=== PATIENT | female | born 1945 | race Caucasian/White ===

== ENCOUNTER 2018-03-31 16:44 | Inpatient (IN) ==
[2018-03-31] MEDS ORDERED: Morphine Sulfate Inj 8 MG/ML Vial IV.PUSH ONE (17:44)
[2018-03-31] MEDS ORDERED: WATER IV.SIG ONE ×2 (17:50)
[2018-03-31] MEDS ORDERED: DEXTROSE 5% IV.SIG ONE ×2 (17:50)
[2018-03-31] MEDS ORDERED: METHYLPREDNISOLONE SOD SUC IV.SIG ONE ×2 (17:50)
--- NOTE | 2018-03-31 18:26 | ED ---
HPI General Chief complaint: Headache Stated complaint: Loss of vision Time Seen by Provider: 03/31/18 17:32 Source: patient Mode of arrival: ambulatory Limitations: no limitations History of Present Illness HPI narrative: Patient is a 72-year-old female presenting to the emergency department for r evaluation of visual changes, headache. Patient states that approximately 10 or 11:00 this morning she experienced complete vision loss in her right eye. This lasted for approximately 15-20 minutes and resolved. She reports a left-sided headache and left facial pain. She reports her pain is a 6 -7 out of 10. She states is consistent with the pain she has had with giant cell arteritis in the past. 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 Patient was initially seen and evaluated [facility], she had labs and imaging performed there. They do not have an cfo on staff and patient states that they wanted to transfer her here via EMS but she declined and came in her private vehicle. Patient has been evaluated at the [facility] by Dr. Medina and she has an cfo , Dr. Rosen at [facility] in [place]. Onset (ago): hour(s) (7.5) Related Data Allergies Allergy/AdvReac Type Severity Reaction Status Date / Time No Known Allergies Allergy Unverified 03/31/18 17:21 Review of Systems Except as stated in HPI: all other systems reviewed are negative Constitutional Reports headache(s) Eyes Reports loss of vision (Resolved) and Reports photophobia ENT Reports facial pain Cardiovascular Reports system reviewed and no additional complaints, except as docu Respiratory Reports system reviewed and no additional complaints, except as docu Gastrointestinal Reports system reviewed and no additional complaints, except as docu Integumentary/Breasts Reports system reviewed and no additional complaints, except as docu Neurologic Denies abnormal speech, Denies abnormal gait, Reports headache(s), Reports loss of vision, Denies paresthesias and Denies weakness [facility] Medical History Medical History Central retinal artery occlusion (Acute) Diabetes (Acute) Giant cell arteritis (Acute) Hyperlipidemia (Acute) Hypertension (Acute) Surgical History Surgical History H/O total hysterectomy (Acute) History of partial hysterectomy (Acute) History of temporal artery biopsy (Acute) Hx of appendectomy (Acute) Hx of tonsillectomy (Acute) Social History Social History Substance History: No History of Abuse Second Hand Smoke Exposure: No Smoking Status: Never smoker How Often Do You Have a Drink Containing Alcohol: Monthly or less Recent Travel in [facility] within the Last 8 Weeks: No Recent Out of Country Travel within the Last 8 Weeks: No Immunization History Tetanus Immunization: <5 Years Hx Influenza Vaccine This Season: Yes Exam Narrative Exam Narrative: GENERAL: Well-developed, well-nourished, alert elderly female. Presenting in no acute distress. SKIN: Focused skin assessment warm/dry. HEAD: Atraumatic. Normocephalic. EYES: Pupils equal and round. No scleral icterus. No injection or drainage. Extraocular movements are intact. ENT: No nasal bleeding or discharge. Mucous membranes pink and moist. NECK: Trachea midline. No JVD. CARDIOVASCULAR: Regular rate and rhythm. No murmur appreciated. RESPIRATORY: No accessory muscle use. Clear to auscultation. Breath sounds equal bilaterally. GASTROINTESTINAL: Abdomen soft, non-tender, nondistended. Hepatic and splenic margins not palpable. MUSCULOSKELETAL: No obvious deformities. No clubbing. No cyanosis. No edema. NEUROLOGICAL: Awake and alert. No obvious cranial nerve deficits. Motor grossly within normal limits. Normal speech. PSYCHIATRIC: Appropriate mood and affect; insight and judgment normal. Neuro General: alert, awake, oriented x3 and CN's II-XI intact bilaterally Cranial Nerves: PERRL, facial strength normal, tongue midline and hearing normal Cognition: normal cognition Speech: speech normal Gait: normal gait Sensory Exam: no sensory deficits noted Course Initial Documented Vital Signs Temperature 97.8 F 03/31/18 17:17 Pulse Rate 86 03/31/18 17:17 Respiratory Rate 20 03/31/18 17:17 Blood Pressure 129/59 L 03/31/18 17:17 Pulse Oximetry 99 03/31/18 17:17 Last Documented Vital Signs Temperature 97.8 F 03/31/18 17:17 Pulse Rate 102 H 03/31/18 17:21 Respiratory Rate 18 03/31/18 17:21 Blood Pressure 191/77 H 03/31/18 17:21 Pulse Oximetry 99 03/31/18 17:21 Medical Decision Making MDM Narrative Medical decision making narrative: Patient is a 72-year-old female that presented to emerge from for evaluation of vision loss, headaches. Patient has a history of giant cell arteritis and has been weaning off of prednisone. She developed headache and had transient vision loss in the right eye this morning. She was seen and evaluated at [facility], initial workup which included a CT scan, CBC, metabolic panel, sed rate, troponin were unremarkable. Patient had these records brought with her. Discussed with Dr. Elver Perry who recommended patient be admitted to medicine, general surgery consult placed, carotid artery ultrasound. Additionally a CRP will be obtained. IV access is established, patient was given morphine for pain. Discussed plan of care with patient who initially just wanted to go home and follow-up with her doctor tomorrow however she was advised that she could suffer permanent vision loss and agreed to stay. Discussed with residents and Dr. Fam who accepted admission, admit orders placed. Differential Diagnosis Differential Diagnosis: Retinal artery occlusion versus giant cell arteritis versus migraine versus other Medical Records Medical records reviewed: Yes I reviewed the patient's medical records. Lab Data Lab results reviewed: Yes I reviewed the patient's lab results. Discharge Plan Discharge Disposition Patient Disposition: 30 Still Patient Discharge Condition Condition: Stable Discharge Details Discharge Problem: Giant cell arteritis, Transient visual loss of right eye, Headache Physicians Team ED Provider: Dominick Hassan ED Midlevel Provider: Radha Duarte Status ED Status: Admitted Patient
--- NOTE | 2018-03-31 19:05 | US ---
EXAM DATE: 03/31/2018 6:59 PM EDT AGE/SEX: 72 years / Female INDICATIONS: Stenosis. CLINICAL DATA: This is the patient's initial encounter. Patient reports that signs and symptoms have been present for 1 day and indicates a pain score of 0/10. MEDICAL/SURGICAL HISTORY: Diabetes. Hypercholesterolemia. Hypertension. Appendectomy. Tonsil lectomy. Hysterectomy. Temporal artery biopsy. COMPARISON: No prior exams available for comparison. VELOCITY PARAMETERS: ICA/CCA Ratio: Right 0.7 , Left 0.7 ICA: Right 79.9 cm/sec, Left 79.4 cm/sec CCA: Right 111.5 cm/sec, Left 118.8 cm/sec ECA: Right 103.7 cm/sec, Left 114.9 cm/sec Vertebral: Right 40.8 cm/sec antegrade, Left 49.1 cm/sec antegrade FINDINGS: Right Carotid: No significant plaque is visualized.The waveforms are within normal limits. Left Carotid: No significant plaque is visualized. The waveforms are within normal limits. Other: None. CONCLUSION: 1. Right Internal Carotid Artery: No significant stenosis or atherosclerotic plaque is visualized. 2. Left Internal Carotid Artery: No significant stenosis or atherosclerotic plaque is visualized. Electronically signed by: Galileo Barney MD 03/31/2018 7:03 PM EDT
--- NOTE | 2018-03-31 19:38 | P.HPFP ---
History of Present Illness Primary Care Physician: UNKNOWN <SarwatTorresLiz M - 04/01/18 15:39> Chief Complaint: transient Right eye vision loss <Tressa Goldsmith D - 04/01/18 00:20> History of Present Illness: Patient is a 72-year-old female with past medical history of diabetes, high cholesterol and left giant cell arteritis (resulting in Left eye vision loss) presenting to the ED with complaints of transient right eye vision loss. Patient reports that she woke up around 4 AM with a bad headache, pain was of throbbing sensation on left rastafari. She took Fioricet and Tylenol for her headache. Later on in the morning that she noticed she could not see from the right eye. Right vision returned within 15 minutes but it was still blurry. Her headache was accompanied by left-sided facial and jaw pain. Patient also reports she felt nauseous and had an upset stomach. Endorses diarrhea. 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 At that time bilateral biopsies of temporal arteries were done and results were negative. However, MRA results were consistent with giant cell arteritis. Patient reports that current episode of right eye vision loss and symptoms of headache, temporal pain are similar to her prior episode of left-sided giant cell arteritis. Denies any numbness or tingling of extremities, weakness, chest pain, shortness of breath, gait issues, fever or chills. Patient went to [facility] where she received lab work and was given 60 [address] of p[address]o. prednisone. CT head and brain without contrast was done with showed mild atrophic changes, no masses or hemorrhages or evidence of acute infarction. Chest x-ray was normal. CBC, ESR and CMP were within normal limits, except slight decrease in na to 127. Of note patient follows with Dr. Rosen from [facility] and Dr. Boo, ophthalmology and rheumatology respectively. She has been tapering down her prednisone medication. Initial dose started at 80 mg and she is currently at 4 mg (for the past 3 wks). She states that she has exacerbation of her headaches whenever she tries to exercise. She has tried to wean down to 3 mg of prednisone but experiences flares every time she has tried to do so. She reports that the tapering of the prednisone has been done based on recommendations from her chip drier and melter assistant. <Tressa Goldsmith 04/01/18 00:20> - Diagnosis (1) Giant cell arteritis (2) Transient visual loss of right eye (3) Headache (4) Diabetes (5) High cholesterol (6) Nutrition, metabolism, and development symptoms <Liz Fam 04/01/18 15:39> (1) Giant cell arteritis (2) Transient visual loss of right eye (3) Headache (4) Diabetes (5) High cholesterol (6) Nutrition, metabolism, and development symptoms <Tressa Goldsmith 03/31/18 23:38> Inpatient Certification: I certify that the inpatient services were ordered in accordance with Medicare regulations governing the order. This includes certification that hospital inpatient services are reasonable and necessary and in the case of services not specified as inpatient-only under 42 CFR 419.22(n), that they are appropriately provided as inpatient services in accordance to with the 2-midnight benchmark under 43 CFR 412.3(e) <Liz Fam 04/01/18 15:39> I certify that the inpatient services were ordered in accordance with Medicare regulations governing the order. This includes certification that hospital inpatient services are reasonable and necessary and in the case of services not specified as inpatient-only under 42 CFR 419.22(n), that they are appropriately provided as inpatient services in accordance to with the 2-midnight benchmark under 43 CFR 412.3(e) <Tressa Goldsmith 03/31/18 19:38> Review of Systems All other systems reviewed negative except as stated in HPI <Tressa Goldsmith 04/01/18 00:20> PMFSH - History History Provided By: Patient <Tressa Goldsmith 03/31/18 19:38> - Medical History Medical History: Medical History (Last Reviewed 03/31/18 @ 18:33 by NANCY Jarquin) Central retinal artery occlusion Diabetes Giant cell arteritis Hyperlipidemia Hypertension <Liz Fam 04/01/18 15:39> Medical History (Last Reviewed 03/31/18 @ 18:33 by NANCY Jarquin) Central retinal artery occlusion Diabetes Giant cell arteritis Hyperlipidemia Hypertension <Tressa Goldsmith 03/31/18 19:38> - Surgical History Surgical History: Surgical History (Last Reviewed 03/31/18 @ 18:33 by NANCY Jarquin) H/O total hysterectomy History of partial hysterectomy History of temporal artery biopsy Hx of appendectomy Hx of tonsillectomy <Liz Fam - 04/01/18 15:39> Surgical History (Last Reviewed 03/31/18 @ 18:33 by NANCY Jarquin) H/O total hysterectomy History of partial hysterectomy History of temporal artery biopsy Hx of appendectomy Hx of tonsillectomy <Tressa Goldsmith - 03/31/18 19:38> - Family History Family History: Family History (Last Updated 04/01/18 @ 00:02 by Tressa Goldsmith MD, R1) Sister Retinal vein occlusion Daughter Brain aneurysm <Liz Fam - 04/01/18 15:39> Family History (Last Updated 04/01/18 @ 00:02 by Tressa Goldsmith MD, R1) Sister Retinal vein occlusion Daughter Brain aneurysm <Tressa Goldsmith - 04/01/18 00:20> - Tobacco History Second Hand Smoke Exposure: No <Tressa Goldsmith - 03/31/18 19:38> Tobacco Use In Past 30 Days: No <Tressa Goldsmith - 03/31/18 19:38> Smoking Status: Never smoker <Tressa Goldsmith - 03/31/18 19:38> - Alcohol History How Often Do You Have a Drink Containing Alcohol: Monthly or less <Tressa Goldsmith - 03/31/18 19:38> - Substance Use History Substance History: No History of Abuse <Tressa Goldsmith - 03/31/18 19:38> - Travel History Recent Travel in the [facility] Within the Last 8 Weeks: No <Tressa Goldsmith - 19:38> Recent Travel Out of the Country Within the Last 8 Weeks: No <Tressa Goldsmith 03/31/18 19:38> - Immunization History Tetanus Immunization: <5 Years <Tresas Goldsmith - 03/31/18 19:38> Hx Influenza Vaccine This Season: Yes <Tressa Goldsmith - 03/31/18 19:38> Medications and Allergies Allergies Allergy/AdvReac Type Severity Reaction Status Date / Time No Known Allergies Allergy Unverified 03/31/18 17:21 <Liz Fam M - 04/01/18 15:39> Home Medications Medication Instructions Recorded Confirmed Type Citracal Regular 50 mg PO DAILY 03/31/18 03/31/18 History ascorbic acid (vitamin C) [C-500] 500 mg PO DAILY 03/31/18 03/31/18 History [id number] 1 cap PO Q4H PRN 03/31/18 03/31/18 History [Fioricet] conjugated estrogens [Premarin] 0.3 mg PO DAILY 03/31/18 03/31/18 History magnesium 250 mg PO DAILY 03/31/18 03/31/18 History simvastatin [Zocor] 10 mg PO QPM 03/31/18 03/31/18 History <Liz Fam M - 04/01/18 15:39> Active Medications: Active Medications Al Hydroxide/Mg Hydroxide (Milk Of Anabelle Gomez) 30 ml PO Q12H PRN PRN Reason: Mild Constipation Ascorbic Acid (Vitamin C) 500 mg PO DAILY [facility] Last Admin: 04/01/18 10:18 Dose: 500 mg Bisacodyl (Dulcolax Supp) 10 mg RECTAL DAILY PRN PRN Reason: SEVERE CONSITIPATION Dextrose (D50w Vial) 50 ml IV.PUSH UNSCH PRN PRN Reason: PER HYPOGLYCEMIA PROTOCOL Enoxaparin Sodium (Lovenox Inj) 30 mg SQ Q24H [facility] Last Admin: 03/31/18 21:50 Dose: 30 mg Glucagon (Glucagon Inj) 1 mg OTHER PRN PRN PRN Reason: for Hypoglycemia Protocol Sodium Chloride (Ns Inj) 1,000 mls @ 100 mls/hr IV.CONT .Q10H [facility] Last Admin: 04/01/18 06:27 Dose: 100 mls/hr Methylprednisolone Sodium (Succinate 500 mg/ Dextrose) 108 mls @ 216 mls/hr IV.SIG ONCE ONE Stop: 04/01/18 17:29 Methylprednisolone Sodium (Succinate 500 mg/ Dextrose) 108 mls @ 216 mls/hr IV.SIG ONCE ONE Stop: 04/02/18 06:29 Insulin Aspart (Novolog Insulin Suppl Scale Inj) 0 unit SQ 07,13, [facility]; Protocol Last Admin: 04/01/18 13:19 Dose: 1 unit Lactulose (Lactulose Liq) 30 ml PO DAILY PRN PRN Reason: SEVERE CONSITIPATION Magnesium Oxide (Mag-Ox) 400 mg PO DAILY [facility] Last Admin: 04/01/18 10:18 Dose: 400 mg Morphine Sulfate (Morphine Inj) 3 mg IV.PUSH Q3H PRN PRN Reason: BREAKTHROUGH PAIN Last Admin: 04/01/18 10:34 Dose: 3 mg Morphine Sulfate (Morphine Inj) 2 mg IV.PUSH Q3H PRN PRN Reason: PAIN 6-10;IF UNABLE TO TAKE PO Last Admin: 04/01/18 04:52 Dose: 2 mg Morphine Sulfate (Morphine Inj) 1 mg IV.PUSH Q3H PRN PRN Reason: PAIN 3-5; IF UABLE TO TAKE PO Naloxone HCl (Narcan Inj) 0.4 mg IV.PUSH UNSCH PRN PRN Reason: SEE LABEL COMMENTS Ondansetron HCl (Zofran Inj) 4 mg IV.PUSH Q6H PRN PRN Reason: NAUSEA OR VOMITING Oxycodone HCl (Roxicodone) 5 mg PO Q4H PRN PRN Reason: PAIN SCALE 3 TO 5 Last Admin: 03/31/18 21:12 Dose: 5 mg Pravastatin Sodium (Pravachol) 20 mg PO HS [facility] Senna/Docusate Sodium (Mayra-Colace) 1 tab PO BID [facility] Last Admin: 04/01/18 10:18 Dose: 1 tab Sennosides (Senokot) 17.2 mg PO Q12H PRN PRN Reason: Moderate Constipation Sodium Chloride (Ns Flush) 2 ml IV.FLUSH PRN PRN PRN Reason: FLUSH AFTER USING IV ACCESS Temazepam (Restoril) 15 mg PO HS PRN PRN Reason: INSOMNIA <Liz Fam - 04/01/18 15:39> Active Medications Sodium Chloride (Ns Flush) 2 ml IV.FLUSH PRN PRN PRN Reason: FLUSH AFTER USING IV ACCESS <Tressa Goldsmith - 03/31/18 19:38> Exam Vital signs: Vital Signs 03/31/18 17:17 03/31/18 17:21 03/31/18 19:06 Temperature 97.8 F Pulse Rate 86 102 H 95 H Respiratory Rate 20 18 Blood Pressure 129/59 L 191/77 H Pulse Oximetry 99 99 03/31/18 20:23 03/31/18 20:28 03/31/18 23:00 Temperature 97.7 F Pulse Rate 95 H 92 H 92 H Respiratory Rate 18 18 Blood Pressure 131/60 147/67 H Pulse Oximetry 95 04/01/18 00:00 04/01/18 00:15 04/01/18 04:00 Temperature 97.4 F L 97.7 F 97.3 F L Pulse Rate 91 H 91 H 87 Respiratory Rate 18 20 18 Blood Pressure 144/63 H 132/60 114/54 L Pulse Oximetry 98 95 96 04/01/18 04:09 04/01/18 08:00 Temperature 97.5 F L Pulse Rate 96 H 83 Respiratory Rate 20 Blood Pressure 119/57 L Pulse Oximetry 99 Intake & Output 03/31/18 04/01/18 04/01/18 18:59 06:59 18:59 Intake Total 1301 / 1301 108 / 108 Balance 1301 / 1301 108 / 108 Weight 59.421 kg 59.42 kg Intake: IV 961 / 961 108 / 108 NS Inj 1,000 ML @ 100 mls/hr IV 961 / 961 .CONT .Q10H [facility] Rx#:[id number] SoluMEDROL Inj 500 MG In D5W 108 / 108 Inj 100 ML @ 216 mls/hr IV.SIG BID ONE Rx#:[id number] Oral 340 / 340 Other: # Voids 3 Date of Last Bowel Movement 03/31/18 Weight On Admission 59.421 kg <Liz Fam M - 04/01/18 15:39> Vital Signs 03/31/18 17:17 03/31/18 17:21 03/31/18 19:06 Temperature 97.8 F Pulse Rate 86 102 H 95 H Respiratory Rate 20 18 Blood Pressure 129/59 L 191/77 H Pulse Oximetry 99 99 Intake & Output 03/31/18 03/31/18 04/01/18 06:59 18:59 06:59 Weight 59.421 kg <Tressa Goldsmith - 03/31/18 19:38> - Constitutional no acute distress, average body habitus <Tressa Goldsmith - 04/01/18 00:20> - Routine HEENT Exam Head: Present: normocephalic, atraumatic, tenderness of temporal artery (on left rastafari, no sinusor jaw tenderness ). Absent: facial swelling <DaleTressa lynne 04/01/18 00:20> Eye: Present: EOMI, PERRL (Left eye vision loss, chronic. Patient able to read vision chart with Right eye. ). Absent: periorbital swelling <Tressa Goldsmith 04/01/18 00:20> ENT: Present: mucous membranes moist <DalemagedTressa 04/01/18 00:20> - Routine Neck Exam Present: supple, full ROM. Absent: JVD <DalemagedTressa 04/01/18 00:20> - Routine Chest/Breast/Axilla Exam Chest wall: Absent: tenderness <Tressa Goldsmith 04/01/18 00:20> - Routine Respiratory Exam Present: CTA bilaterally. Absent: accessory muscle use <Tressa Goldsmith 06/11 00:20> - Routine Cardiovascular Exam Present: RRR, S1, S2. Absent: murmur, gallop, rubs <DalemagedTressa 00:20> - Routine Abdominal Exam Present: soft, normoactive bowel sounds. Absent: tenderness, distended, rebound , guarding <Tressa Goldsmith 04/01/18 00:20> - Routine Extremities Exam Present: full ROM, pulses intact, normal capillary refill. Absent: cyanosis, clubbing, edema, calf tenderness <Tressa Goldsmith 04/01/18 00:20> - Routine Skin Exam Present: intact <DalemagedTressa 04/01/18 00:20> - Routine Neurological Exam Present: alert, oriented X3, CN II-XII intact <DalemagedMarandaTressa Hung 04/01/18 00: 20> Results - Labs Result diagrams: 04/01/18 06:06 04/01/18 06:06 <Liz Fam - 04/01/18 15:39> Abnormal lab results 03/31/18 04/01/18 04/01/18 Range/Units 18:10 00:13 06:06 RBC 3.83 L (4.00-5.30) mil/mm3 Neut % (Auto) 86.8 H (16.0-70.0) % Lymph # (Auto) 0.7 L (1.0-4.8) th/mm3 Estimated GFR (>89) mL/min POC Glucose 224 H (68-110) mg/dl Random Glucose 148 H (74-106) mg/dL AST (15-37) U/L Albumin (3.4-5.0) g/dL 04/01/18 04/01/18 04/01/18 Range/Units 06:06 06:32 12:44 RBC (4.00-5.30) mil/mm3 Neut % (Auto) (16.0-70.0) % Lymph # (Auto) (1.0-4.8) th/mm3 Estimated GFR 70 L (>89) mL/min POC Glucose 166 H 165 H (68-110) mg/dl Random Glucose 132 H (74-106) mg/dL AST 12 L (15-37) U/L Albumin 3.1 L (3.4-5.0) g/dL Short CBC 04/01/18 Range/Units 06:06 WBC 6.4 (4.0-11.0) th/mm3 Hgb 11.7 (11.6-15.3) gm/dL Hct 35.0 (35.0-46.0) % Plt Count 255 (150-450) th/mm3 BMP 04/01/18 06:06 Sodium 136 Potassium 4.6 Chloride 103 Carbon Dioxide 22.0 BUN 8 Creatinine 0.80 Calcium 8.6 Liver Function 04/01/18 Range/Units 06:06 Total Bilirubin 0.2 (0.2-1.0) mg/dL AST 12 L (15-37) U/L ALT 18 (10-53) U/L Alkaline Phosphatase 46 (45-117) U/L Albumin 3.1 L (3.4-5.0) g/dL <Liz Fam - 04/01/18 15:39> - Imaging Impressions Carotid Doppler Study 03/31/18 17:55 CONCLUSION: 1. Right Internal Carotid Artery: No significant stenosis or atherosclerotic plaque is visualized. 2. Left Internal Carotid Artery: No significant stenosis or atherosclerotic plaque is visualized. <Liz Fam - 04/01/18 15:39> Impressions Carotid Doppler Study 03/31/18 17:55 CONCLUSION: 1. Right Internal Carotid Artery: No significant stenosis or atherosclerotic plaque is visualized. 2. Left Internal Carotid Artery: No significant stenosis or atherosclerotic plaque is visualized. <Tressa Goldsmith - 03/31/18 19:38> Caprini VTE Risk Assessment Caprini VTE Risk Assessment: Moderate/High Risk (score >= 2) <Tressa Goldsmith - 04/01/18 00:20> Caprini Risk Assessment Model: Point Value = 1 Point Value = 2 Point Value = 3 Point Value = 5 Age 41-60 Minor surgery BMI > 25 kg/m2 Swollen legs Varicose veins or History of unexplained or recurrent spontaneous Oral contraceptives or hormone replacement Sepsis (< 1 month) Serious lung disease, including pneumonia (< 1 month) Abnormal pulmonary function Acute myocardial infarction Congestive heart failure (< 1 month) History of inflammatory bowel disease Medical patient at bed rest Age 61-74 Arthroscopic surgery Major open surgery (> 45 min) Laparoscopic surgery (> 45 min) Malignancy Confined to bed (> 72 hours) Immobilizing plaster cast Central venous access Age >= 75 History of VTE Family history of VTE Factor V Leiden Prothrombin [id number] Lupus anticoagulant Anticardiolipin antibodies Elevated serum homocysteine Heparin-induced thrombocytopenia Other congenital or acquired thrombophilia Stroke (< 1 month) Elective arthroplasty Hip, pelvis, or leg fracture Acute spinal cord injury (< 1 month) <Liz Fam - 04/01/18 15:39> Point Value = 1 Point Value = 2 Point Value = 3 Point Value = 5 Age 41-60 Minor surgery BMI > 25 kg/m2 Swollen legs Varicose veins or History of unexplained or recurrent spontaneous Oral contraceptives or hormone replacement Sepsis (< 1 month) Serious lung disease, including pneumonia (< 1 month) Abnormal pulmonary function Acute myocardial infarction Congestive heart failure (< 1 month) History of inflammatory bowel disease Medical patient at bed rest Age 61-74 Arthroscopic surgery Major open surgery (> 45 min) Laparoscopic surgery (> 45 min) Malignancy Confined to bed (> 72 hours) Immobilizing plaster cast Central venous access Age >= 75 History of VTE Family history of VTE Factor V Leiden Prothrombin [id number] Lupus anticoagulant Anticardiolipin antibodies Elevated serum homocysteine Heparin-induced thrombocytopenia Other congenital or acquired thrombophilia Stroke (< 1 month) Elective arthroplasty Hip, pelvis, or leg fracture Acute spinal cord injury (< 1 month) <Tressa Goldsmith - 03/31/18 19:38> Prophylaxis Regimen: Total Risk Factor Score Risk Level Prophylaxis Regimen 0-1 Low Early ambulation 2 Moderate Order ONE of the following: *Sequential Compression Device (SCD) *Heparin 5000 units SQ BID 3-4 Higher Order ONE of the following medications: *Heparin 5000 units SQ TID *Enoxaparin/Lovenox 40 mg SQ daily (WT < 150 kg, CrCl > 30 mL/min) *Enoxaparin/Lovenox 30 mg SQ daily (WT < 150 kg, CrCl > 10-29 mL/min) *Enoxaparin/Lovenox 30 mg SQ BID (WT < 150 kg, CrCl > 30 mL/min) AND/OR *Sequential Compression Device (SCD) 5 or more Highest Order ONE of the following medications: *Heparin 5000 units SQ TID (Preferred with Epidurals) *Enoxaparin/Lovenox 40 mg SQ daily (WT < 150 kg, CrCl > 30 mL/min) *Enoxaparin/Lovenox 30 mg SQ daily (WT < 150 kg, CrCl > 10-29 mL/min) *Enoxaparin/Lovenox 30 mg SQ BID (WT < 150 kg, CrCl > 30 mL/min) AND *Sequential Compression Device (SCD) <Liz Fam - 04/01/18 15:39> Total Risk Factor Score Risk Level Prophylaxis Regimen 0-1 Low Early ambulation 2 Moderate Order ONE of the following: *Sequential Compression Device (SCD) *Heparin 5000 units SQ BID 3-4 Higher Order ONE of the following medications: *Heparin 5000 units SQ TID *Enoxaparin/Lovenox 40 mg SQ daily (WT < 150 kg, CrCl > 30 mL/min) *Enoxaparin/Lovenox 30 mg SQ daily (WT < 150 kg, CrCl > 10-29 mL/min) *Enoxaparin/Lovenox 30 mg SQ BID (WT < 150 kg, CrCl > 30 mL/min) AND/OR *Sequential Compression Device (SCD) 5 or more Highest Order ONE of the following medications: *Heparin 5000 units SQ TID (Preferred with Epidurals) *Enoxaparin/Lovenox 40 mg SQ daily (WT < 150 kg, CrCl > 30 mL/min) *Enoxaparin/Lovenox 30 mg SQ daily (WT < 150 kg, CrCl > 10-29 mL/min) *Enoxaparin/Lovenox 30 mg SQ BID (WT < 150 kg, CrCl > 30 mL/min) AND *Sequential Compression Device (SCD) <Tressa Goldsmith D - 03/31/18 19:38> Assessment and Plan - Assessment (1) Giant cell arteritis Code(s): M31.6 - Other giant cell arteritis Status: Acute (2) Transient visual loss of right eye Code(s): H53.121 - Transient visual loss, right eye Status: Acute (3) Headache Code(s): R51 - Headache Status: Acute (4) Diabetes Code(s): E11.9 - Type 2 diabetes mellitus without complications Status: Chronic (5) High cholesterol Code(s): E78.00 - Pure hypercholesterolemia, unspecified Status: Acute (6) Nutrition, metabolism, and development symptoms Code(s): R63.8 - Other symptoms and signs concerning food and fluid intake Status: Acute <Liz Fam - 04/01/18 15:39> (1) Giant cell arteritis Code(s): M31.6 - Other giant cell arteritis Status: Acute Plan: Patient with 1 day history of transient right eye vision loss accompanied by left temporal tenderness and jaw pain. 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 Suspicion for giant cell arteritis affecting right eye vision. Patient currently with return of right eye vision, able to read eye chart. Continue with methylprednisone 500 mg IV twice daily Vital signs within normal limits, continue to monitor Pain management: Morphine per pain scale Ophthalmology consulted, appreciate recommendations. Follow-up: A.m. labs (2) Transient visual loss of right eye Code(s): H53.121 - Transient visual loss, right eye Status: Acute Plan: Continue to monitor See plan above (3) Headache Code(s): R51 - Headache Status: Acute Plan: See plan for giant cell arteritis (4) Diabetes Code(s): E11.9 - Type 2 diabetes mellitus without complications Status: Chronic Plan: Patient with history of diabetes. Patient with random glucose of 148 on admission. Accu-Cheks Sliding scale insulin per protocol Hypoglycemia protocol (5) High cholesterol Code(s): E78.00 - Pure hypercholesterolemia, unspecified Status: Acute Plan: Continue with home medication (6) Nutrition, metabolism, and development symptoms Code(s): R63.8 - Other symptoms and signs concerning food and fluid intake Status: Acute Plan: Fluids: 100mls/hr Electrolytes: Replete as needed Nutrition: Diabetic diet DVT prophylaxis Lovenox 40mg SQ daily <Tressa Goldsmith - 03/31/18 23:38> - Attending Attestation The exam, history, and the medical decision-making described in the above note were completed with the assistance of the resident physician. I reviewed and agree with the findings presented. I attest that I had a [id number] encounter with the patient on the same day, and personally performed and documented my assessment and findings in the medical record. she was seen during the admission process with the residents. agree with steroids and Ophthalmology. can call her [facility] prior to discharge <Liz Fam - 04/01/18 15:39> <Tressa Goldsmith D - Last Filed: 03/31/18 23:38> (3) Headache Qualifiers: Headache type: other vascular headache Qualified Code(s): G44.1 - Vascular headache, not elsewhere classified <Liz Fam - Last Filed: 04/01/18 15:39> (3) Headache Qualifiers: Headache type: other vascular headache Qualified Code(s): G44.1 - Vascular headache, not elsewhere classified <Tressa Goldsmith - Last Filed: 03/31/18 23:38> (3) Headache Qualifiers: Headache type: other vascular headache Qualified Code(s): G44.1 - Vascular headache, not elsewhere classified <Liz Fam M - Last Filed: 04/01/18 15:39> (3) Headache Qualifiers: Headache type: other vascular headache Qualified Code(s): G44.1 - Vascular headache, not elsewhere classified
[2018-03-31] MEDS ORDERED: Bisacodyl 10 MG Supp RECTAL PRN (19:39)
[2018-03-31] MEDS ORDERED: Temazepam 15 MG Capsule PO PRN (19:39)
[2018-03-31] MEDS ORDERED: Ibuprofen 400 MG Tablet PO PRN (19:50)
[2018-03-31] MEDS ORDERED: Morphine Sulfate Inj 2 MG/ML Vial IV.PUSH PRN (19:50)
[2018-03-31] MEDS ORDERED: Naloxone Inj 0.4 MG/ML Vial IV.PUSH PRN (19:50)
[2018-03-31] MEDS ORDERED: Dextrose 50% in Water 50 ML Vial IV.PUSH PRN (20:22)
[2018-03-31] MEDS: Enoxaparin Inj 30 MG/0.3 ML Syringe SQ SCH (21:50)
[2018-03-31] MEDS: Senna/Docusate Sodium 8.6/50 MG Tablet PO SCH (21:51)
[2018-03-31] MEDS: Sod Chloride 0.9% Inj 1,000 ML IV.CONT SCH (21:53)
[2018-04-01] MEDS: Morphine Inj 4 MG/ML Vial IV.PUSH PRN ×4 (00:25→19:30)
[2018-04-01] MEDS: Insulin NovoLOG Aspart Correctional Sugar Inj SQ SCH ×4 (00:43→22:00)
[2018-04-01] MEDS ORDERED: WATER IV.SIG ONE ×4 (06:00→17:00)
[2018-04-01] MEDS ORDERED: DEXTROSE 5% IV.SIG ONE ×4 (06:00→17:00)
[2018-04-01] MEDS ORDERED: METHYLPREDNISOLONE SOD SUC IV.SIG ONE ×4 (06:00→17:00)
[2018-04-01] MEDS: Sod Chloride 0.9% Inj 1,000 ML IV.CONT SCH ×2 (06:27→18:00)
[2018-04-01 08:41] LABS: Baso % (Auto) 0.1 % (0.0-2.0); Hemoglobin 11.7 gm/dL (11.6-15.3); Lymph # (Auto) 0.7 th/mm3 (1.0-4.8); Lymph % (Auto) 10.6 % (9.0-44.0); Mean Corpuscular HGB Conc 33.5 % (32.0-36.0); Mean Corpuscular Hemoglobin 30.6 pg (27.0-34.0); Mean Corpuscular Volume 91.5 fL (80.0-100.0); Mean Platelet Volume 10.4 fL (7.0-11.0); Mono # (Auto) 0.2 th/mm3 (0.0-0.9); Mono % (Auto) 2.5 % (0.0-8.0); Neut # (Auto) 5.5 th/mm3 (1.8-7.7); Neut % (Auto) 86.8 % (16.0-70.0); Platelet Count 255 th/mm3 (150-450); Red Blood Count 3.83 mil/mm3 (4.00-5.30); Red Cell Distribution Width 12.8 % (11.6-17.2); White Blood Count 6.4 th/mm3 (4.0-11.0)
[2018-04-01 09:06] LABS: Alanine Aminotransferase 18 U/L (10-53); Albumin 3.1 g/dL (3.4-5.0); Anion Gap 11 meq/L (5-15); Aspartate Aminotransferase 12 U/L (15-37); Blood Urea Nitrogen 8 mg/dL (7-18); Calcium 8.6 mg/dL (8.5-10.1); Chloride 103 meq/L (98-107); Glomerular Filtration Rate 70 mL/min (>89); Glucose,Random 132 mg/dL (74-106); Potassium 4.6 meq/L (3.5-5.1); Sodium 136 meq/L (136-145)
[2018-04-01 09:09] LABS: Alkaline Phosphatase 46 U/L (45-117); Total Protein 6.6 g/dL (6.4-8.2)
--- NOTE | 2018-04-01 09:56 | P.HPFP ---
History of Present Illness Primary Care Physician: UNKNOWN Chief Complaint: transient Right eye vision loss History of Present Illness: Ms Miles is a 72-year-old female with past medical history of diabetes, high cholesterol and left giant cell arteritis (resulting in Left eye vision loss) presenting to the ED with complaints of transient right eye vision loss. Patient reports that she woke up around 4 AM with a bad headache, pain was of throbbing sensation on left church. She took Fioricet and Tylenol for her headache. Later on in the morning that she noticed she could not see from the right eye. Right vision returned within 15 minutes but it was still blurry. Her headache was accompanied by left-sided facial and jaw pain. Patient also reports she felt nauseous and had an upset stomach. Endorses diarrhea. 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 At that time bilateral biopsies of temporal arteries were done and results were negative. However, MRA results were consistent with giant cell arteritis. Patient reports that current episode of right eye vision loss and symptoms of headache, temporal pain are similar to her prior episode of left-sided giant cell arteritis. Denies any numbness or tingling of extremities, weakness, chest pain, shortness of breath, gait issues, fever or chills. Patient went to [facility] where she received lab work and was given 60 mg of p[address]o. prednisone. CT head and brain without contrast was done with showed mild atrophic changes, no masses or hemorrhages or evidence of acute infarction. Chest x-ray was normal. CBC, ESR and CMP were within normal limits, except slight decrease in na to 127. Of note patient follows with Dr. Rosen from [facility] and Dr. Gomez, ophthalmology and rheumatology respectively. She has been tapering down her prednisone medication. Initial dose started at 80 mg and she is currently at 4 mg (for the past 3 wks). She states that she has exacerbation of her headaches whenever she tries to exercise. She has tried to wean down to 3 mg of prednisone but experiences flares every time she has tried to do so. 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 Fortunately, her vision has been stable here in the hospital. She is still light sensitive but can see to read an eye chart. She has no complaints today and her headaches are improving with the steroids. - Diagnosis (1) Giant cell arteritis (2) Transient visual loss of right eye (3) Headache (4) Diabetes (5) High cholesterol (6) Nutrition, metabolism, and development symptoms Inpatient Certification: I certify that the inpatient services were ordered in accordance with Medicare regulations governing the order. This includes certification that hospital inpatient services are reasonable and necessary and in the case of services not specified as inpatient-only under 42 CFR 419.22(n), that they are appropriately provided as inpatient services in accordance to with the 2-midnight benchmark under 43 CFR 412.3(e) Estimated Total Length of Stay (Days): 5 Plans for Post Hospital Care: Home Review of Systems other (see ROS from H&P on admission) PMFSH - History History Provided By: Patient - Medical History Medical History: Medical History (Last Reviewed 03/31/18 @ 18:33 by NANCY Jarquin) Central retinal artery occlusion Diabetes Giant cell arteritis Hyperlipidemia Hypertension - Surgical History Surgical History: Surgical History (Last Reviewed 03/31/18 @ 18:33 by NANCY Jarquin) H/O total hysterectomy History of partial hysterectomy History of temporal artery biopsy Hx of appendectomy Hx of tonsillectomy - Family History Family History: Family History (Last Updated 04/01/18 @ 00:02 by Tressa Goldsmith MD, R1) Sister Retinal vein occlusion Daughter Brain aneurysm - Tobacco History Second Hand Smoke Exposure: No Tobacco Use In Past 30 Days: No Smoking Status: Never smoker - Alcohol History How Often Do You Have a Drink Containing Alcohol: Monthly or less - Substance Use History Substance History: No History of Abuse - Travel History Recent Travel in the [place] Within the Last 8 Weeks: No Recent Travel Out of the Country Within the Last 8 Weeks: No - Immunization History Tetanus Immunization: <5 Years Hx Influenza Vaccine This Season: Yes Medications and Allergies Active Medications: Active Medications Al Hydroxide/Mg Hydroxide (Milk Of Magnesia Liq) 30 ml PO Q12H PRN PRN Reason: Mild Constipation Ascorbic Acid (Vitamin C) 500 mg PO DAILY [facility] Bisacodyl (Dulcolax Supp) 10 mg RECTAL DAILY PRN PRN Reason: SEVERE CONSITIPATION Dextrose (D50w Vial) 50 ml IV.PUSH UNSCH PRN PRN Reason: PER HYPOGLYCEMIA PROTOCOL Enoxaparin Sodium (Lovenox Inj) 30 mg SQ Q24H [facility] Last Admin: 03/31/18 21:50 Dose: 30 mg Glucagon (Glucagon Inj) 1 mg OTHER PRN PRN PRN Reason: for Hypoglycemia Protocol Sodium Chloride (Ns Inj) 1,000 mls @ 100 mls/hr IV.CONT .Q10H [facility] Last Admin: 04/01/18 06:27 Dose: 100 mls/hr Insulin Aspart (Novolog Insulin Suppl Scale Inj) 0 unit SQ 07,13,, [facility]; Protocol Last Admin: 04/01/18 06:39 Dose: Not Given Lactulose (Lactulose Liq) 30 ml PO DAILY PRN PRN Reason: SEVERE CONSITIPATION Magnesium Oxide (Mag-Ox) 400 mg PO DAILY [facility] Morphine Sulfate (Morphine Inj) 3 mg IV.PUSH Q3H PRN PRN Reason: BREAKTHROUGH PAIN Morphine Sulfate (Morphine Inj) 2 mg IV.PUSH Q3H PRN PRN Reason: PAIN 6-10;IF UNABLE TO TAKE PO Last Admin: 04/01/18 04:52 Dose: 2 mg Morphine Sulfate (Morphine Inj) 1 mg IV.PUSH Q3H PRN PRN Reason: PAIN 3-5; IF UABLE TO TAKE PO Naloxone HCl (Narcan Inj) 0.4 mg IV.PUSH UNSCH PRN PRN Reason: SEE LABEL COMMENTS Ondansetron HCl (Zofran Inj) 4 mg IV.PUSH Q6H PRN PRN Reason: NAUSEA OR VOMITING Oxycodone HCl (Roxicodone) 5 mg PO Q4H PRN PRN Reason: PAIN SCALE 3 TO 5 Last Admin: 03/31/18 21:12 Dose: 5 mg Pravastatin Sodium (Pravachol) 20 mg PO HS [facility] Senna/Docusate Sodium (Mayra-Colace) 1 tab PO BID [facility] Last Admin: 03/31/18 21:51 Dose: 1 tab Sennosides (Senokot) 17.2 mg PO Q12H PRN PRN Reason: Moderate Constipation Sodium Chloride (Ns Flush) 2 ml IV.FLUSH PRN PRN PRN Reason: FLUSH AFTER USING IV ACCESS Temazepam (Restoril) 15 mg PO HS PRN PRN Reason: INSOMNIA Allergies Allergy/AdvReac Type Severity Reaction Status Date / Time No Known Allergies Allergy Unverified 03/31/18 17:21 Home Medications Medication Instructions Recorded Confirmed Type Citracal Regular 50 mg PO DAILY 03/31/18 03/31/18 History ascorbic acid (vitamin C) [C-500] 500 mg PO DAILY 03/31/18 03/31/18 History seantoqskp-hhlrzsherrmid-keja 1 cap PO Q4H PRN 03/31/18 03/31/18 History [Fioricet] conjugated estrogens [Premarin] 0.3 mg PO DAILY 03/31/18 03/31/18 History magnesium 250 mg PO DAILY 03/31/18 03/31/18 History simvastatin [Zocor] 10 mg PO QPM 03/31/18 03/31/18 History Exam Vital signs: Vital Signs 03/31/18 17:17 03/31/18 17:21 03/31/18 19:06 Temperature 97.8 F Pulse Rate 86 102 H 95 H Respiratory Rate 20 18 Blood Pressure 129/59 L 191/77 H Pulse Oximetry 99 99 03/31/18 20:23 03/31/18 20:28 03/31/18 23:00 Temperature 97.7 F Pulse Rate 95 H 92 H 92 H Respiratory Rate 18 18 Blood Pressure 131/60 147/67 H Pulse Oximetry 95 04/01/18 00:00 04/01/18 04:00 04/01/18 04:09 Temperature 97.4 F L 97.3 F L Pulse Rate 91 H 87 96 H Respiratory Rate 18 18 Blood Pressure 144/63 H 114/54 L Pulse Oximetry 98 96 04/01/18 08:00 Temperature 97.5 F L Pulse Rate 83 Respiratory Rate 20 Blood Pressure 119/57 L Pulse Oximetry 99 Intake & Output 03/31/18 04/01/18 04/01/18 18:59 06:59 18:59 Intake Total 1301 / 1301 108 / 108 Balance 1301 / 1301 108 / 108 Weight 59.421 kg 59.42 kg Intake: IV 961 / 961 108 / 108 NS Inj 1,000 ML @ 100 mls/hr IV 961 / 961 .CONT .Q10H [facility] Rx#:[id number] SoluMEDROL Inj 500 MG In D5W 108 / 108 Inj 100 ML @ 216 mls/hr IV.SIG BID ONE Rx#:[id number] Oral 340 / 340 Other: # Voids 3 Date of Last Bowel Movement 03/31/18 Weight On Admission 59.421 kg - Constitutional no acute distress, average body habitus, cooperative - Routine HEENT Exam Head: Present: normocephalic, atraumatic, scalp tenderness, tenderness of temporal artery. Absent: facial swelling Eye: Present: EOMI, PERRL. Absent: conjunctival icterus, scleral injection, conjunctivae pink, nystagmus, proptosis ENT: Present: mucous membranes moist, oropharynx clear. Absent: septal deviation - Routine Neck Exam Present: supple, full ROM. Absent: carotid bruit - Routine Chest/Breast/Axilla Exam Chest wall: Absent: tenderness, chest tube - Routine Respiratory Exam Absent: accessory muscle use, patient mechanically ventilated, decreased breath sounds, prolonged expiratory phase, rales, respiratory distress, rhonchi, stridor, wheezes, crackles, distant breath sounds, diminished air movement - Routine Cardiovascular Exam Present: RRR. Absent: gallop, rubs, click, bradycardia, tachycardia, irregular rhythm, irregularly irregular, JVD - Routine Abdominal Exam Present: soft, normoactive bowel sounds. Absent: tenderness, distended, rebound , guarding - Routine Extremities Exam Absent: cyanosis, clubbing, edema, calf tenderness, palpable cord, tenderness, extremity cold to touch - Routine Skin Exam Present: intact, dry. Absent: cyanosis, erythema, pallor, mottling, petechiae, jaundice - Routine Neurological Exam Present: alert, oriented X3, moving all extremities, normal tone, vision grossly intact (right eye), normal speech. Absent: sensory deficit, motor deficit, altered mental status, hemineglect, facial asymmetry Results - Labs Result diagrams: 04/01/18 06:06 04/01/18 06:06 Abnormal lab results 03/31/18 04/01/18 04/01/18 Range/Units 18:10 00:13 06:06 RBC 3.83 L (4.00-5.30) mil/mm3 Neut % (Auto) 86.8 H (16.0-70.0) % Lymph # (Auto) 0.7 L (1.0-4.8) th/mm3 Estimated GFR (>89) mL/min POC Glucose 224 H (68-110) mg/dl Random Glucose 148 H (74-106) mg/dL AST (15-37) U/L Albumin (3.4-5.0) g/dL 04/01/18 04/01/18 Range/Units 06:06 06:32 RBC (4.00-5.30) mil/mm3 Neut % (Auto) (16.0-70.0) % Lymph # (Auto) (1.0-4.8) th/mm3 Estimated GFR 70 L (>89) mL/min POC Glucose 166 H (68-110) mg/dl Random Glucose 132 H (74-106) mg/dL AST 12 L (15-37) U/L Albumin 3.1 L (3.4-5.0) g/dL Short CBC 04/01/18 Range/Units 06:06 WBC 6.4 (4.0-11.0) th/mm3 Hgb 11.7 (11.6-15.3) gm/dL Hct 35.0 (35.0-46.0) % Plt Count 255 (150-450) th/mm3 BMP 04/01/18 06:06 Sodium 136 Potassium 4.6 Chloride 103 Carbon Dioxide 22.0 BUN 8 Creatinine 0.80 Calcium 8.6 Liver Function 04/01/18 Range/Units 06:06 Total Bilirubin 0.2 (0.2-1.0) mg/dL AST 12 L (15-37) U/L ALT 18 (10-53) U/L Alkaline Phosphatase 46 (45-117) U/L Albumin 3.1 L (3.4-5.0) g/dL - Imaging Impressions Carotid Doppler Study 03/31/18 17:55 CONCLUSION: 1. Right Internal Carotid Artery: No significant stenosis or atherosclerotic plaque is visualized. 2. Left Internal Carotid Artery: No significant stenosis or atherosclerotic plaque is visualized. Caprini VTE Risk Assessment Caprini VTE Risk Assessment: Moderate/High Risk (score >= 2) Caprini Risk Assessment Model: Point Value = 1 Point Value = 2 Point Value = 3 Point Value = 5 Age 41-60 Minor surgery BMI > 25 kg/m2 Swollen legs Varicose veins or History of unexplained or recurrent spontaneous Oral contraceptives or hormone replacement Sepsis (< 1 month) Serious lung disease, including pneumonia (< 1 month) Abnormal pulmonary function Acute myocardial infarction Congestive heart failure (< 1 month) History of inflammatory bowel disease Medical patient at bed rest Age 61-74 Arthroscopic surgery Major open surgery (> 45 min) Laparoscopic surgery (> 45 min) Malignancy Confined to bed (> 72 hours) Immobilizing plaster cast Central venous access Age >= 75 History of VTE Family history of VTE Factor V Leiden Prothrombin [id number] Lupus anticoagulant Anticardiolipin antibodies Elevated serum homocysteine Heparin-induced thrombocytopenia Other congenital or acquired thrombophilia Stroke (< 1 month) Elective arthroplasty Hip, pelvis, or leg fracture Acute spinal cord injury (< 1 month) Prophylaxis Regimen: Total Risk Factor Score Risk Level Prophylaxis Regimen 0-1 Low Early ambulation 2 Moderate Order ONE of the following: *Sequential Compression Device (SCD) *Heparin 5000 units SQ BID 3-4 Higher Order ONE of the following medications: *Heparin 5000 units SQ TID *Enoxaparin/Lovenox 40 mg SQ daily (WT < 150 kg, CrCl > 30 mL/min) *Enoxaparin/Lovenox 30 mg SQ daily (WT < 150 kg, CrCl > 10-29 mL/min) *Enoxaparin/Lovenox 30 mg SQ BID (WT < 150 kg, CrCl > 30 mL/min) AND/OR *Sequential Compression Device (SCD) 5 or more Highest Order ONE of the following medications: *Heparin 5000 units SQ TID (Preferred with Epidurals) *Enoxaparin/Lovenox 40 mg SQ daily (WT < 150 kg, CrCl > 30 mL/min) *Enoxaparin/Lovenox 30 mg SQ daily (WT < 150 kg, CrCl > 10-29 mL/min) *Enoxaparin/Lovenox 30 mg SQ BID (WT < 150 kg, CrCl > 30 mL/min) AND *Sequential Compression Device (SCD) Assessment and Plan - Assessment (1) Giant cell arteritis Code(s): M31.6 - Other giant cell arteritis Status: Acute Plan: Patient with 1 day history of transient right eye vision loss accompanied by left temporal tenderness and jaw pain. 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 Suspicion for giant cell arteritis affecting right eye vision. Patient currently with return of right eye vision, able to read eye chart. Continue with methylprednisone 500 mg IV twice daily x 3 days Vital signs within normal limits, continue to monitor Pain management: Morphine per pain scale. her headaches are improving with steroids as temporal arteritis does normally Ophthalmology consulted, appreciate recommendations. Follow-up: A.m. labs (2) Transient visual loss of right eye Code(s): H53.121 - Transient visual loss, right eye Status: Acute Plan: Continue to monitor See plan above (3) Headache Code(s): R51 - Headache Status: Acute Plan: See plan for giant cell arteritis (4) Diabetes Code(s): E11.9 - Type 2 diabetes mellitus without complications Status: Chronic Plan: Patient with history of diabetes. Patient with random glucose of 148 on admission. Accu-Cheks Sliding scale insulin per protocol Hypoglycemia protocol (5) High cholesterol Code(s): E78.00 - Pure hypercholesterolemia, unspecified Status: Acute Plan: Continue with home medication (6) Nutrition, metabolism, and development symptoms Code(s): R63.8 - Other symptoms and signs concerning food and fluid intake Status: Acute Plan: Fluids: 100mls/hr Electrolytes: Replete as needed Nutrition: Diabetic diet DVT prophylaxis Lovenox 40mg SQ daily H&P: Quality - VTE Deep Vein Thrombosis/Pulmonary Embolism Present on Admission: No (3) Headache Qualifiers: Headache type: other vascular headache Qualified Code(s): G44.1 - Vascular headache, not elsewhere classified
[2018-04-01] MEDS: Magnesium Oxide 400 MG Tablet PO SCH (10:18)
[2018-04-01] MEDS: Ascorbic Acid 500 MG Tablet PO SCH (10:18)
[2018-04-01] MEDS: Senna/Docusate Sodium 8.6/50 MG Tablet PO SCH ×2 (10:18→21:54)
[2018-04-01] MEDS: Calcium Carbonate 500 MG Tablet PO SCH (10:18)
[2018-04-01] MEDS: Enoxaparin Inj 30 MG/0.3 ML Syringe SQ SCH (21:54)
[2018-04-02] MEDS: Insulin NovoLOG Aspart Correctional Sugar Inj SQ SCH ×4 (03:50→18:36)
[2018-04-02] MEDS: Sod Chloride 0.9% Inj 1,000 ML IV.CONT SCH (03:50)
[2018-04-02] MEDS: Morphine Inj 4 MG/ML Vial IV.PUSH PRN (05:01)
[2018-04-02] MEDS ORDERED: WATER IV.SIG ONE ×4 (06:00→16:00)
[2018-04-02] MEDS ORDERED: METHYLPREDNISOLONE SOD SUC IV.SIG ONE ×4 (06:00→16:00)
[2018-04-02] MEDS ORDERED: DEXTROSE 5% IV.SIG ONE ×4 (06:00→16:00)
[2018-04-02] MEDS: Ascorbic Acid 500 MG Tablet PO SCH (08:29)
[2018-04-02] MEDS: Senna/Docusate Sodium 8.6/50 MG Tablet PO SCH ×2 (08:29→20:57)
[2018-04-02] MEDS: Magnesium Oxide 400 MG Tablet PO SCH (08:29)
[2018-04-02] MEDS: Calcium Carbonate 500 MG Tablet PO SCH (08:29)
--- NOTE | 2018-04-02 08:33 | P.CON ---
History of Present Illness Service: Ophthalmolology Reason for Consult: possible GCA Primary Care Provider: UNKNOWN Chief Complaint: transient Right eye vision loss History of Present Illness: 72 yo F with h/o DM, high cholesterol presenting to [place] ED for evaluation of transient right eye visual changes and headache. Patient states that at approx 10 am Sunday morning she experienced complete vision loss in her right eye that lasted for approximately 15-20 minutes and resolved. She also had a left-sided headache and left facial pain at this time. She states it was similar to the pain she had with giant cell arteritis in the past so she went to [facility] - they did a stroke workup - everything was normal, including an ESR. They advised her to come to [place] because an hide buyer would be able to see her here. Complicated past medical history - last May she started having decreased vision in her left eye centrally, along with a left sided headache, left eye pain, left jaw pain. She had a workup for temporal arteritis - ESR was normal and a temporal artery biopsy was normal. She was sent to [facility] eye (Dr. Huerta/ Dr. Rosen) for a dilated exam - they thought she had a possible central retinal artery occlusion and vein occlusion in her left eye and sent her to (Retina specialist). He was treating her for macular edema with injections in her left eye. felt despite her normal ESR and normal biopsy, her symptoms were consistent with GCA and she should be treated with steroids. She started seeing Dr. Box (Rheumatology) who ordered an MRA that stated she had borderline signs of GCA. He recommended she go to [facility] for a second opinion. Evaluated at the [facility] by Dr. Membreno (Neuro-Ophthalmology) - he ordered a second temporal artery biopsy which was also negative. She has been gradually tapering down on the steroids since that time. Initial dose started at 80 mg and she is currently at 4 mg ( for the past 3 wks). She states her vision in her right eye is back to baseline. Her left eye vision has been blurred centrally since last May. No other significant ocular history. [facility] - History History Provided By: Patient - Medical History Medical History: Medical History (Last Reviewed 03/31/18 @ 18:33 by NANCY Jarquin) Central retinal artery occlusion Diabetes Giant cell arteritis Hyperlipidemia Hypertension - Surgical History Surgical History: Surgical History (Last Reviewed 03/31/18 @ 18:33 by NANCY Jarquin) H/O total hysterectomy History of partial hysterectomy History of temporal artery biopsy Hx of appendectomy Hx of tonsillectomy - Family History Family History: Family History (Last Updated 04/01/18 @ 00:02 by Tressa Goldsmith MD, R1) Sister Retinal vein occlusion Daughter Brain aneurysm - Tobacco History Second Hand Smoke Exposure: No Tobacco Use In Past 30 Days: No Smoking Status: Never smoker - Alcohol History How Often Do You Have a Drink Containing Alcohol: Monthly or less - Substance Use History Substance History: No History of Abuse - Travel History Recent Travel in the [place] Within the Last 8 Weeks: No Recent Travel Out of the Country Within the Last 8 Weeks: No - Immunization History Tetanus Immunization: <5 Years Hx Influenza Vaccine This Season: Yes Medications and Allergies Active Medications: Active Medications Al Hydroxide/Mg Hydroxide (Milk Of Magnesia Liq) 30 ml PO Q12H PRN PRN Reason: Mild Constipation Ascorbic Acid (Vitamin C) 500 mg PO DAILY [facility] Last Admin: 04/02/18 08:29 Dose: 500 mg Bisacodyl (Dulcolax Supp) 10 mg RECTAL DAILY PRN PRN Reason: SEVERE CONSITIPATION Dextrose (D50w Vial) 50 ml IV.PUSH UNSCH PRN PRN Reason: PER HYPOGLYCEMIA PROTOCOL Enoxaparin Sodium (Lovenox Inj) 30 mg SQ Q24H [facility] Last Admin: 04/01/18 21:54 Dose: 30 mg Glucagon (Glucagon Inj) 1 mg OTHER PRN PRN PRN Reason: for Hypoglycemia Protocol Sodium Chloride (Ns Inj) 1,000 mls @ 100 mls/hr IV.CONT .Q10H [facility] Last Admin: 04/02/18 03:50 Dose: Not Given Insulin Aspart (Novolog Insulin Suppl Scale Inj) 0 unit SQ 07,13,, [facility]; Protocol Last Admin: 04/02/18 06:29 Dose: 1 unit Lactulose (Lactulose Liq) 30 ml PO DAILY PRN PRN Reason: SEVERE CONSITIPATION Magnesium Oxide (Mag-Ox) 400 mg PO DAILY [facility] Last Admin: 04/02/18 08:29 Dose: 400 mg Morphine Sulfate (Morphine Inj) 3 mg IV.PUSH Q3H PRN PRN Reason: BREAKTHROUGH PAIN Last Admin: 04/01/18 19:30 Dose: 3 mg Morphine Sulfate (Morphine Inj) 2 mg IV.PUSH Q3H PRN PRN Reason: PAIN 6-10;IF UNABLE TO TAKE PO Last Admin: 04/02/18 05:01 Dose: 2 mg Morphine Sulfate (Morphine Inj) 1 mg IV.PUSH Q3H PRN PRN Reason: PAIN 3-5; IF UABLE TO TAKE PO Naloxone HCl (Narcan Inj) 0.4 mg IV.PUSH UNSCH PRN PRN Reason: SEE LABEL COMMENTS Ondansetron HCl (Zofran Inj) 4 mg IV.PUSH Q6H PRN PRN Reason: NAUSEA OR VOMITING Oxycodone HCl (Roxicodone) 5 mg PO Q4H PRN PRN Reason: PAIN SCALE 3 TO 5 Last Admin: 04/02/18 06:31 Dose: 5 mg Pravastatin Sodium (Pravachol) 20 mg PO HS [facility] Last Admin: 04/01/18 21:54 Dose: 20 mg Senna/Docusate Sodium (Mayra-Colace) 1 tab PO BID [facility] Last Admin: 04/02/18 08:29 Dose: 1 tab Sennosides (Senokot) 17.2 mg PO Q12H PRN PRN Reason: Moderate Constipation Sodium Chloride (Ns Flush) 2 ml IV.FLUSH PRN PRN PRN Reason: FLUSH AFTER USING IV ACCESS Temazepam (Restoril) 15 mg PO HS PRN PRN Reason: INSOMNIA Allergies Allergy/AdvReac Type Severity Reaction Status Date / Time No Known Allergies Allergy Unverified 03/31/18 17:21 Home Medications Medication Instructions Recorded Confirmed Type Citracal Regular 50 mg PO DAILY 03/31/18 03/31/18 History ascorbic acid (vitamin C) [C-500] 500 mg PO DAILY 03/31/18 03/31/18 History bwvjvutlrw-oaqrvkhipahyo-cbir 1 cap PO Q4H PRN 03/31/18 03/31/18 History [Fioricet] conjugated estrogens [Premarin] 0.3 mg PO DAILY 03/31/18 03/31/18 History magnesium 250 mg PO DAILY 03/31/18 03/31/18 History simvastatin [Zocor] 10 mg PO QPM 03/31/18 03/31/18 History lisinopril 5 mg PO DAILY 04/01/18 04/01/18 History Physical Exam Vital signs: Vital Signs 04/01/18 09:00 04/01/18 16:56 04/01/18 20:00 Temperature 97.6 F 98.0 F Pulse Rate 85 92 H 81 Respiratory Rate 20 18 Blood Pressure 128/60 137/63 Pulse Oximetry 99 95 04/02/18 00:00 04/02/18 04:00 Temperature 97.4 F L 97.9 F Pulse Rate 88 87 Respiratory Rate 16 18 Blood Pressure 134/61 133/67 Pulse Oximetry 96 97 Intake & Output 04/01/18 04/02/18 04/02/18 18:59 06:59 18:59 Intake Total 1108 / 1108 480 / 480 Balance 1108 / 1108 480 / 480 Intake: IV 1108 / 1108 NS Inj 1,000 ML @ 100 mls/hr IV 1000 / 1000 .CONT .Q10H [facility] Rx#:[id number] SoluMEDROL Inj 500 MG In D5W 108 / 108 Inj 100 ML @ 216 mls/hr IV.SIG BID ONE Rx#:[id number] Oral 480 / 480 Other: # Voids 4 - Detailed Eye Exam Comments: Va cc at near OD 20/50, OS CF 1 ft EOM full OU CVF full OD, unable OS Pupils 2-1, ? APD OS IOP normal to palpation OU Anterior exam OD - normal eyelid, C/S W&Q, K clear, AC deep, pupil round, lens clear OS - normal eyelid, C/S W&Q, K clear, AC deep, pupil round, lens clear Dilated exam OD - ON s/p/f, ves normal, vit clear, retina flat OS - ON s/p/f, ves normal, vit clear, retinal heme in all 4 quadrants, macular edema Assessment and Plan - Assessment (1) Amaurosis fugax of right eye Code(s): G45.3 - Amaurosis fugax Status: Acute Plan: ESR 5. Carotid doppler normal. Recommend treating her as GCA due to symptoms - 3 days of Methylprednisone 1g IV. Discharging on 80mg Prednisone daily. Follow up with her outpatient doctors - Dr. Rosen, Dr. Gardiner, Dr. Box, Dr. Membreno. (2) CRVO (central retinal vein occlusion) Code(s): H34.8192 - Central retinal vein occlusion, unspecified eye, stable Status: Acute Plan: Still has significant macular edema in her left eye that needs treatment with Avastin injections. Needs to follow up with Retina, , once discharged.
[2018-04-02] MEDS ORDERED: Lisinopril 5 MG Tablet PO ONE (08:38)
--- NOTE | 2018-04-02 12:15 | P.PNFP ---
Subjective Interval history: Patient seen and examined at bedside. No acute events overnight. Patient still complains of left-sided temporal pain, left thigh pain and left jaw pain. However pain has improved. Patient reported she will like transition to p.o. medication. She was seen by Dr. Perry this morning. Will also like to resume estrogen medication. <Tressa Goldsmith - 04/02/18 18:03> Results - Labs Result diagrams: 04/03/18 05:07 04/03/18 05:07 <Liz Fam - 04/03/18 13:41> Abnormal lab results 04/02/18 04/02/18 04/03/18 Range/Units 12:30 12:39 01:02 WBC 15.1 H (4.0-11.0) th/mm3 RBC 3.53 L (4.00-5.30) mil/mm3 Hgb 10.8 L (11.6-15.3) gm/dL Hct 32.4 L (35.0-46.0) % Sodium (136-145) meq/L BUN (7-18) mg/dL Creatinine (0.50-1.00) mg/dL Estimated GFR 72 L (>89) mL/min POC Glucose 143 H (68-110) mg/dl Random Glucose 133 H (74-106) mg/dL Calcium 8.4 L (8.5-10.1) mg/dL 04/03/18 04/03/18 04/03/18 Range/Units 05:07 05:07 06:22 WBC 15.6 H (4.0-11.0) th/mm3 RBC 3.98 L (4.00-5.30) mil/mm3 Hgb (11.6-15.3) gm/dL Hct (35.0-46.0) % Sodium 134 L (136-145) meq/L BUN 22 H (7-18) mg/dL Creatinine 1.02 H (0.50-1.00) mg/dL Estimated GFR 53 L (>89) mL/min POC Glucose 140 H (68-110) mg/dl Random Glucose 128 H (74-106) mg/dL Calcium (8.5-10.1) mg/dL Short CBC 04/02/18 04/03/18 Range/Units 12:30 05:07 WBC 15.1 H 15.6 H (4.0-11.0) th/mm3 Hgb 10.8 L 12.1 (11.6-15.3) gm/dL Hct 32.4 L 36.3 (35.0-46.0) % Plt Count 272 276 (150-450) th/mm3 BMP 04/02/18 04/03/18 12:39 05:07 Sodium 138 134 L Potassium 4.4 4.6 Chloride 104 100 Carbon Dioxide 26.6 25.4 BUN 12 22 H Creatinine 0.78 1.02 H Calcium 8.4 L 9.0 <Liz Fam M - 04/03/18 13:41> Abnormal lab results 04/01/18 04/01/18 04/02/18 Range/Units 12:44 21:52 06:23 POC Glucose 165 H 148 H 168 H (68-110) mg/dl <Tressa Goldsmith D - 04/02/18 12:15> Physical Exam Vital signs: Vital Signs 04/02/18 16:00 04/02/18 18:04 04/02/18 20:10 Temperature 97.5 F L 97.8 F Pulse Rate 93 H 79 Respiratory Rate 18 18 16 Blood Pressure 155/70 H 140/64 Pulse Oximetry 98 97 04/03/18 00:15 04/03/18 05:30 04/03/18 06:39 Temperature 97.8 F 97.8 F Pulse Rate 82 86 Respiratory Rate 16 17 7 L Blood Pressure 157/72 H 153/70 H Pulse Oximetry 95 97 04/03/18 08:00 04/03/18 12:00 Temperature 97.2 F L 97.7 F Pulse Rate 99 H 77 Respiratory Rate 18 16 Blood Pressure 149/72 H 143/67 H Pulse Oximetry 97 93 L Intake & Output 04/02/18 04/03/18 04/03/18 18:59 06:59 18:59 Intake Total 1200 / 1200 588 / 588 Balance 1200 / 1200 588 / 588 Intake: IV 108 / 108 SoluMEDROL Inj 500 MG In D5W 108 / 108 Inj 100 ML @ 216 mls/hr IV.SIG ONCE ONE Rx#:[id number] Oral 1200 / 1200 480 / 480 Other: # Voids 6 4 Date of Last Bowel Movement 03/31/18 03/31/1818 # Bowel Movements 0 0 <Liz Fam M - 04/03/18 13:41> Vital Signs 04/01/18 16:56 04/01/18 20:00 04/02/18 00:00 Temperature 97.6 F 98.0 F 97.4 F L Pulse Rate 92 H 81 88 Respiratory Rate 18 16 Blood Pressure 128/60 137/63 134/61 Pulse Oximetry 99 95 96 04/02/18 04:00 04/02/18 08:00 04/02/18 10:33 Temperature 97.9 F 97.6 F Pulse Rate 87 96 H Respiratory Rate 18 Blood Pressure 133/67 175/77 H Pulse Oximetry 97 97 Intake & Output 04/01/18 04/02/18 04/02/18 18:59 06:59 18:59 Intake Total 1108 / 1108 480 / 480 Balance 1108 / 1108 480 / 480 Intake: IV 1108 / 1108 NS Inj 1,000 ML @ 100 mls/hr IV 1000 / 1000 .CONT .Q10H KOBE Rx#:[id number] SoluMEDROL Inj 500 MG In D5W 108 / 108 Inj 100 ML @ 216 mls/hr IV.SIG BID ONE Rx#:[id number] Oral 480 / 480 Other: # Voids 4 Date of Last Bowel Movement 03/31/18 <Tressa Goldsmith D - 04/02/18 12:15> - Constitutional no acute distress <Tressa Goldsmith D - 04/02/18 18:03> - Routine HEENT Exam Head: Present: normocephalic (left jaw pain), tenderness of temporal artery ( left side) <Tressa Goldsmith D 04/02/18 18:03> Eye: Present: EOMI (Patient has recently had her eyes dilated by Dr. Perry and vision was blury on Right eye due to this. ). Absent: periorbital swelling, exophthalmos <Tressa Goldsmith D - 04/02/18 18:03> ENT: Present: mucous membranes moist <Tressa Goldsmith D - 04/02/18 18:03> - Routine Neck Exam Present: supple, full ROM <Tressa Goldsmith D 04/02/18 18:03> - Routine Respiratory Exam Present: CTA bilaterally. Absent: accessory muscle use <Tressa Goldsmith D - 07/11 18:03> - Routine Cardiovascular Exam Present: RRR, S1, S2. Absent: murmur, gallop, rubs <Tressa Goldsmith D - 18:03> - Routine Abdominal Exam Present: soft, normoactive bowel sounds <Tressa Goldsmith D 04/02/18 18:03> - Routine Extremities Exam Present: pulses intact. Absent: cyanosis, clubbing, edema <Tressa Goldsmith D - 04/02/18 18:03> - Routine Skin Exam Present: intact <Tressa Goldsmith 04/02/18 18:03> - Routine Neurological Exam Present: alert, oriented X3, CN II-XII intact <Tressa Goldsmith D - 04/02/18 18: 03> Assessment and Plan - Assessment (1) Giant cell arteritis Code(s): M31.6 - Other giant cell arteritis Status: Inactive Plan: On admission patient presented with 1 day history of transient right eye vision loss accompanied by left temporal tenderness and jaw pain. 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 sxs likely due to giant cell arteritis affecting right eye vision. Patient currently with return of right eye vision, able to read eye chart. ESR- 5, CRP - less than 0.29 Continue with methylprednisone 500 mg IV twice daily x 3 days Vital signs within normal limits, continue to monitor Pain management: fiorcet and toradol Ophthalmology consulted, appreciate recommendations. - 3 days of Methylprednisone 1g IV - Discharge on 80mg Prednisone daily - Patient to f/u with outpatient doctors: Dr. Rosen, Dr. Gardiner, Dr. Box, Dr. Membreno. Follow-up: A.m. labs (2) Transient visual loss of right eye Code(s): H53.121 - Transient visual loss, right eye Status: Inactive Plan: Continue to monitor See plan above (3) Headache Code(s): R51 - Headache Status: Inactive Plan: See plan for giant cell arteritis (4) Diabetes Code(s): E11.9 - Type 2 diabetes mellitus without complications Status: Chronic Plan: Patient with history of diabetes. Patient with random glucose of 148 on admission. Accu-Cheks Sliding scale insulin per protocol Hypoglycemia protocol (5) High cholesterol Code(s): E78.00 - Pure hypercholesterolemia, unspecified Status: Acute Plan: Continue with home medication (6) Nutrition, metabolism, and development symptoms Code(s): R63.8 - Other symptoms and signs concerning food and fluid intake Status: Acute Plan: Fluids: not indicated at this time Electrolytes: Replete as needed Nutrition: Diabetic diet DVT prophylaxis Lovenox 40mg SQ daily <Tressa Goldsmith - 04/02/18 17:23> (1) Giant cell arteritis Code(s): M31.6 - Other giant cell arteritis Status: Acute (2) Hypertension Code(s): I10 - Essential (primary) hypertension Status: Acute (3) Diabetes Code(s): E11.9 - Type 2 diabetes mellitus without complications Status: Chronic (4) High cholesterol Code(s): E78.00 - Pure hypercholesterolemia, unspecified Status: Acute (5) Nutrition, metabolism, and development symptoms Code(s): R63.8 - Other symptoms and signs concerning food and fluid intake Status: Acute <Liz Fam - 04/03/18 13:41> - Attending Attestation The exam, history, and the medical decision-making described in the above note were completed with the assistance of the resident physician. I reviewed and agree with the findings presented. I attest that I had a [id number] encounter with the patient on the same day, and personally performed and documented my assessment and findings in the medical record. Thankfully she is improving and can hopefully go home tomorrow <Liz Fam - 04/03/18 13:41> <Tressa Goldsmith - Last Filed: 04/02/18 17:23> (3) Headache Qualifiers: Headache type: other vascular headache Qualified Code(s): G44.1 - Vascular headache, not elsewhere classified <Tressa Goldsmith D - Last Filed: 04/02/18 17:23> (3) Headache Qualifiers: Headache type: other vascular headache Qualified Code(s): G44.1 - Vascular headache, not elsewhere classified
[2018-04-02] MEDS: Butalbital/APAP/Caff 50/325/40 MG Tablet PO PRN ×3 (12:21→23:49)
[2018-04-02] MEDS: Ketorolac 10 MG Tablet PO PRN ×2 (12:21→17:34)
[2018-04-02 13:40] LABS: Hematocrit 32.4 % (35.0-46.0); Hemoglobin 10.8 gm/dL (11.6-15.3); Mean Corpuscular HGB Conc 33.3 % (32.0-36.0); Mean Corpuscular Hemoglobin 30.6 pg (27.0-34.0); Mean Corpuscular Volume 91.8 fL (80.0-100.0); Mean Platelet Volume 10.2 fL (7.0-11.0); Platelet Count 272 th/mm3 (150-450); Red Blood Count 3.53 mil/mm3 (4.00-5.30); Red Cell Distribution Width 12.9 % (11.6-17.2); White Blood Count 15.1 th/mm3 (4.0-11.0)
[2018-04-02 14:03] LABS: Calcium 8.4 mg/dL (8.5-10.1); Carbon Dioxide 26.6 meq/L (21.0-32.0)
[2018-04-02 14:09] LABS: Potassium 4.4 meq/L (3.5-5.1)
[2018-04-02] MEDS: Enoxaparin Inj 30 MG/0.3 ML Syringe SQ SCH (20:57)
[2018-04-03] MEDS ORDERED: Morphine Inj 4 MG/ML Vial IV.PUSH ONE (00:15)
[2018-04-03] MEDS: Insulin NovoLOG Aspart Correctional Sugar Inj SQ SCH ×4 (01:31→18:33)
[2018-04-03] MEDS ORDERED: WATER IV.SIG ONE ×2 (05:00)
[2018-04-03] MEDS ORDERED: METHYLPREDNISOLONE SOD SUC IV.SIG ONE ×2 (05:00)
[2018-04-03] MEDS ORDERED: DEXTROSE 5% IV.SIG ONE ×2 (05:00)
[2018-04-03 06:00] LABS: Hematocrit 36.3 % (35.0-46.0); Hemoglobin 12.1 gm/dL (11.6-15.3); Mean Corpuscular HGB Conc 33.2 % (32.0-36.0); Mean Corpuscular Hemoglobin 30.3 pg (27.0-34.0); Mean Corpuscular Volume 91.2 fL (80.0-100.0); Mean Platelet Volume 9.7 fL (7.0-11.0); Platelet Count 276 th/mm3 (150-450); Red Blood Count 3.98 mil/mm3 (4.00-5.30); Red Cell Distribution Width 12.9 % (11.6-17.2); White Blood Count 15.6 th/mm3 (4.0-11.0)
[2018-04-03] MEDS: Butalbital/APAP/Caff 50/325/40 MG Tablet PO PRN (06:11)
[2018-04-03 06:29] LABS: Carbon Dioxide 25.4 meq/L (21.0-32.0); Potassium 4.6 meq/L (3.5-5.1)
[2018-04-03] MEDS ORDERED: Morphine Sulfate Inj 2 MG/ML Vial IV.PUSH PRN ×2 (08:34→08:51)
[2018-04-03] MEDS ORDERED: Morphine Inj 4 MG/ML Vial IV.PUSH PRN (08:51)
[2018-04-03] MEDS ORDERED: Naloxone Inj 0.4 MG/ML Vial IV.PUSH PRN (08:51)
[2018-04-03] MEDS: Morphine Inj 4 MG/ML Vial IV.PUSH PRN ×4 (09:27→21:51)
[2018-04-03] MEDS: Ascorbic Acid 500 MG Tablet PO SCH (09:32)
[2018-04-03] MEDS: Calcium Carbonate 500 MG Tablet PO SCH (09:32)
[2018-04-03] MEDS: Lisinopril 5 MG Tablet PO SCH (09:32)
[2018-04-03] MEDS: Senna/Docusate Sodium 8.6/50 MG Tablet PO SCH ×2 (09:33→21:06)
[2018-04-03] MEDS: Magnesium Oxide 400 MG Tablet PO SCH (09:33)
[2018-04-03] MEDS ORDERED: Enoxaparin Inj 40 MG/0.4 ML Syringe SQ SCH (11:30)
--- NOTE | 2018-04-03 11:31 | P.PNFP ---
Subjective Interval history: Patient seen and examined at bedside. Patient's pain medication were switched to fiorcet and tramadol per patient request due to her experience with this medications which have treated her headaches in the past. However, overnight patient had c/o headaches and was given morphine. This morning pt is complaining of worsen headache, and tenderness along Left temples and jaw BL. Patient also reports that overnight she also had white spots on the her right field of vision which has now resolved. <Tressa Goldsmith D - 04/03/18 11:30> Results - Labs Result diagrams: 04/03/18 05:07 04/03/18 05:07 <Liz Fam - 04/03/18 13:53> Abnormal lab results 04/02/18 04/03/18 04/03/18 Range/Units 12:39 01:02 05:07 WBC 15.6 H (4.0-11.0) th/mm3 RBC 3.98 L (4.00-5.30) mil/mm3 Sodium (136-145) meq/L BUN (7-18) mg/dL Creatinine (0.50-1.00) mg/dL Estimated GFR 72 L (>89) mL/min POC Glucose 143 H (68-110) mg/dl Random Glucose 133 H (74-106) mg/dL Calcium 8.4 L (8.5-10.1) mg/dL 04/03/18 04/03/18 Range/Units 05:07 06:22 WBC (4.0-11.0) th/mm3 RBC (4.00-5.30) mil/mm3 Sodium 134 L (136-145) meq/L BUN 22 H (7-18) mg/dL Creatinine 1.02 H (0.50-1.00) mg/dL Estimated GFR 53 L (>89) mL/min POC Glucose 140 H (68-110) mg/dl Random Glucose 128 H (74-106) mg/dL Calcium (8.5-10.1) mg/dL Short CBC 04/03/18 Range/Units 05:07 WBC 15.6 H (4.0-11.0) th/mm3 Hgb 12.1 (11.6-15.3) gm/dL Hct 36.3 (35.0-46.0) % Plt Count 276 (150-450) th/mm3 [facility] 04/02/18 04/03/18 12:39 05:07 Sodium 138 134 L Potassium 4.4 4.6 Chloride 104 100 Carbon Dioxide 26.6 25.4 BUN 12 22 H Creatinine 0.78 1.02 H Calcium 8.4 L 9.0 <Liz Fam - 04/03/18 13:53> Abnormal lab results 04/02/18 04/02/18 04/03/18 Range/Units 12:30 12:39 01:02 WBC 15.1 H (4.0-11.0) th/mm3 RBC 3.53 L (4.00-5.30) mil/mm3 Hgb 10.8 L (11.6-15.3) gm/dL Hct 32.4 L (35.0-46.0) % Sodium (136-145) meq/L BUN (7-18) mg/dL Creatinine (0.50-1.00) mg/dL Estimated GFR 72 L (>89) mL/min POC Glucose 143 H (68-110) mg/dl Random Glucose 133 H (74-106) mg/dL Calcium 8.4 L (8.5-10.1) mg/dL 04/03/18 04/03/18 04/03/18 Range/Units 05:07 05:07 06:22 WBC 15.6 H (4.0-11.0) th/mm3 RBC 3.98 L (4.00-5.30) mil/mm3 Hgb (11.6-15.3) gm/dL Hct (35.0-46.0) % Sodium 134 L (136-145) meq/L BUN 22 H (7-18) mg/dL Creatinine 1.02 H (0.50-1.00) mg/dL Estimated GFR 53 L (>89) mL/min POC Glucose 140 H (68-110) mg/dl Random Glucose 128 H (74-106) mg/dL Calcium (8.5-10.1) mg/dL Short CBC 04/02/18 04/03/18 Range/Units 12:30 05:07 WBC 15.1 H 15.6 H (4.0-11.0) th/mm3 Hgb 10.8 L 12.1 (11.6-15.3) gm/dL Hct 32.4 L 36.3 (35.0-46.0) % Plt Count 272 276 (150-450) th/mm3 BMP 04/02/18 04/03/18 12:39 05:07 Sodium 138 134 L Potassium 4.4 4.6 Chloride 104 100 Carbon Dioxide 26.6 25.4 BUN 12 22 H Creatinine 0.78 1.02 H Calcium 8.4 L 9.0 <Tressa Goldsmith D - 04/03/18 11:30> Physical Exam Vital signs: Vital Signs 04/02/18 16:00 04/02/18 18:04 04/02/18 20:10 Temperature 97.5 F L 97.8 F Pulse Rate 93 H 79 Respiratory Rate 18 18 16 Blood Pressure 155/70 H 140/64 Pulse Oximetry 98 97 04/03/18 00:15 04/03/18 05:30 04/03/18 06:39 Temperature 97.8 F 97.8 F Pulse Rate 82 86 Respiratory Rate 16 17 7 L Blood Pressure 157/72 H 153/70 H Pulse Oximetry 95 97 04/03/18 08:00 04/03/18 12:00 Temperature 97.2 F L 97.7 F Pulse Rate 99 H 77 Respiratory Rate 18 16 Blood Pressure 149/72 H 143/67 H Pulse Oximetry 97 93 L Intake & Output 04/02/18 04/03/18 04/03/18 18:59 06:59 18:59 Intake Total 1200 / 1200 588 / 588 Balance 1200 / 1200 588 / 588 Intake: IV 108 / 108 SoluMEDROL Inj 500 MG In D5W 108 / 108 Inj 100 ML @ 216 mls/hr IV.SIG ONCE ONE Rx#:[id number] Oral 1200 / 1200 480 / 480 Other: # Voids 6 4 Date of Last Bowel Movement 03/31/18 03/31/18 03/31/18 # Bowel Movements 0 0 <Liz Fam - 04/03/18 13:53> Vital Signs 04/02/18 12:00 04/02/18 12:51 04/02/18 16:00 Temperature 97.9 F 97.5 F L Pulse Rate 88 93 H Respiratory Rate 16 18 18 Blood Pressure 146/65 H 155/70 H Pulse Oximetry 96 98 04/02/18 18:04 04/02/18 20:10 04/03/18 00:15 Temperature 97.8 F 97.8 F Pulse Rate 79 82 Respiratory Rate 18 16 16 Blood Pressure 140/64 157/72 H Pulse Oximetry 97 95 04/03/18 05:30 04/03/18 06:39 04/03/18 08:00 Temperature 97.8 F 97.2 F L Pulse Rate 86 99 H Respiratory Rate 17 7 L 18 Blood Pressure 153/70 H 149/72 H Pulse Oximetry 97 97 Intake & Output 04/02/18 04/03/18 04/03/18 18:59 06:59 18:59 Intake Total 1200 / 1200 588 / 588 Balance 1200 / 1200 588 / 588 Intake: IV 108 / 108 SoluMEDROL Inj 500 MG In D5W 108 / 108 Inj 100 ML @ 216 mls/hr IV.SIG ONCE ONE Rx#:[id number] Oral 1200 / 1200 480 / 480 Other: # Voids 6 4 Date of Last Bowel Movement 03/31/18 03/31/18 03/31/18 # Bowel Movements 0 0 <Tressa Goldsmith 04/03/18 11:30> - Constitutional moderate distress, average body habitus <Tressa Goldsmith 04/03/18 11:30> - Routine HEENT Exam Head: Present: scalp tenderness, tenderness of temporal artery (tenderness along left mormonism, ), facial swelling (mild facial swelling BL along temples. ) <Tressa Goldsmith 04/03/18 11:30> Eye: Present: EOMI (pain with eye movement). Absent: scleral injection < Tressa Goldsmith 04/03/18 11:30> - Routine Neck Exam Present: supple, full ROM. Absent: JVD <Tressa Goldsmith 04/03/18 11:30> - Routine Respiratory Exam Present: CTA bilaterally. Absent: accessory muscle use <Tressa Goldsmith 08/11 11:30> - Routine Cardiovascular Exam Present: RRR, S1, S2. Absent: murmur, gallop, rubs <Tressa Goldsmith 11:30> - Routine Abdominal Exam Present: soft, normoactive bowel sounds <Tressa Goldsmith 04/03/18 11:30> - Routine Extremities Exam Present: full ROM, pulses intact. Absent: cyanosis, clubbing, edema <Tressa Goldsmith - 04/03/18 11:30> - Routine Skin Exam Present: intact <Tressa Goldsmith 04/03/18 11:30> - Routine Neurological Exam Present: alert, oriented X3, CN II-XII intact <Tressa Goldsmith 04/03/18 11: 30> Assessment and Plan - Assessment (1) Giant cell arteritis Code(s): M31.6 - Other giant cell arteritis Status: Acute (2) Hypertension Code(s): I10 - Essential (primary) hypertension Status: Acute (3) Diabetes Code(s): E11.9 - Type 2 diabetes mellitus without complications Status: Chronic (4) High cholesterol Code(s): E78.00 - Pure hypercholesterolemia, unspecified Status: Acute (5) Nutrition, metabolism, and development symptoms Code(s): R63.8 - Other symptoms and signs concerning food and fluid intake Status: Acute <Liz Fam Torri - 04/03/18 13:53> (1) Giant cell arteritis Code(s): M31.6 - Other giant cell arteritis Status: Acute Plan: Patient with 1 day history of transient right eye vision loss accompanied by left temporal tenderness and jaw pain. 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 Suspicion for giant cell arteritis affecting right eye vision. Patient currently with return of right eye vision. Headache and temporal temples BL worse this am. Patient completed day course of 3 day course of IV steroids. Vital signs within normal limits, continue to monitor Pain management: Morphine per pain scale Ophthalmology consulted, appreciate recommendations. Patient to be treated as GCA due to symptoms - 3 days of Methylprednisone 1g IV. To be discharged on 80mg Prednisone daily. Due to patient continue worsening headache and transient vision issues on her right eye plan for transfer to [facility] where she has received care for this condition in the past. Case discussed with her cathode maker Dr. Gomez and Dr. Perry who agreed with the transfer. (2) Hypertension Code(s): I10 - Essential (primary) hypertension Status: Acute Plan: Continue with home medication (3) Diabetes Code(s): E11.9 - Type 2 diabetes mellitus without complications Status: Chronic Plan: Patient with history of diabetes. Accu-Cheks Sliding scale insulin per protocol Hypoglycemia protocol (4) High cholesterol Code(s): E78.00 - Pure hypercholesterolemia, unspecified Status: Acute Plan: Continue with home medication (5) Nutrition, metabolism, and development symptoms Code(s): R63.8 - Other symptoms and signs concerning food and fluid intake Status: Acute Plan: Fluids: not indicated at this time Electrolytes: Replete as needed Nutrition: Diabetic diet DVT prophylaxis Lovenox 40mg SQ daily <Tressa Goldsmith - 04/03/18 10:49> - Attending Attestation The exam, history, and the medical decision-making described in the above note were completed with the assistance of the resident physician. I reviewed and agree with the findings presented. I attest that I had a [id number] encounter with the patient on the same day, and personally performed and documented my assessment and findings in the medical record. Despite, 3 days of steroids iv at high dose, she is worsening clinically. she states this headache today is the same as the headache that accompanied her loss of vision in her left eye. she has pain in her left and right eye. she had a workup per Ophthalmology and was seen at [place] with the conclusion that she had temporal arteritis as the cause of her vision loss. she did well when she was on higher dose steroids and only had this problem when her dose went less than 5 mg. She started having her typical temporal headaches with some jaw pain and eye pain as her steroids were weaned off. Many times temporal arteritis can last years and people need treatment for years. She has had this for 9 months only. 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 Her [employer] Strip Inspector who has seen her in the hospital agrees with transfer to [place] as we have no Rheumatologic service here. Her outpatient Electrode Cleaning Machine Operator also agrees with the transfer. 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
[2018-04-03] MEDS: Enoxaparin Inj 40 MG/0.4 ML Syringe SQ SCH (12:22)
[2018-04-04] MEDS: Insulin NovoLOG Aspart Correctional Sugar Inj SQ SCH ×2 (01:00→06:29)
[2018-04-04] MEDS: Morphine Inj 4 MG/ML Vial IV.PUSH PRN ×2 (02:58→06:30)
[2018-04-04] MEDS ORDERED: oxyCODONE/Acetaminophen 10/325 Tablet PO PRN (08:32)
[2018-04-04] MEDS ORDERED: predniSONE 20 MG Tablet PO SCH (09:00)
[2018-04-04] MEDS: Magnesium Oxide 400 MG Tablet PO SCH (09:49)
[2018-04-04] MEDS: Senna/Docusate Sodium 8.6/50 MG Tablet PO SCH (09:50)
[2018-04-04] MEDS: Calcium Carbonate 500 MG Tablet PO SCH (09:50)
[2018-04-04] MEDS: Lisinopril 5 MG Tablet PO SCH (09:50)
[2018-04-04] MEDS: Ascorbic Acid 500 MG Tablet PO SCH (09:50)
--- NOTE | 2018-04-04 10:34 | P.PNFP ---
Subjective Interval history: Patient seen and examined at bedside this morning. No acute events overnight. Patient was switched to IV morphine per pain scale yesterday due to worsening of headache the day prior. Over this morning patient reports headache and temporal/facial pain is well controlled since being on IV morphine. She would like to be transitioned to p.o. medication to prepare for discharge. Patient denies any dizziness, chest pain, shortness of breath N/V. She reports intermittent episodes of seeing a white spot on the right visual field. Currently she reports stable vision in her right eye with no visual disturbances. She is tolerating p.o. well. <Tressa Goldsmith D - 04/04/18 10:34> Results - Labs Result diagrams: 04/03/18 05:07 04/03/18 05:07 <Liz Fam - 04/04/18 15:59> Physical Exam Vital signs: Vital Signs 04/03/18 16:00 04/03/18 21:50 04/04/18 00:45 Temperature 98.3 F 97.7 F 97.3 F L Pulse Rate 79 82 74 Respiratory Rate 18 16 16 Blood Pressure 123/65 175/79 H 139/71 Pulse Oximetry 99 97 95 04/04/18 04:00 Temperature 97.5 F L Pulse Rate 80 Respiratory Rate 16 Blood Pressure 132/60 Pulse Oximetry 98 Intake & Output 04/03/18 04/04/18 04/04/18 18:59 06:59 18:59 Intake Total 720 / 720 Balance 720 / 720 Intake: Oral 720 / 720 Other: # Voids 2 3 Date of Last Bowel Movement 03/31/18 03/31/18 03/31/18 # Bowel Movements 0 <Liz Fam - 04/04/18 15:59> Vital Signs 04/03/18 12:00 04/03/18 16:00 04/03/18 21:50 Temperature 97.7 F 98.3 F 97.7 F Pulse Rate 77 79 82 Respiratory Rate 16 18 16 Blood Pressure 143/67 H 123/65 175/79 H Pulse Oximetry 93 L 99 97 04/04/18 00:45 04/04/18 04:00 Temperature 97.3 F L 97.5 F L Pulse Rate 74 80 Respiratory Rate 16 16 Blood Pressure 139/71 132/60 Pulse Oximetry 95 98 Intake & Output 04/03/18 04/04/18 04/04/18 18:59 06:59 18:59 Intake Total 720 / 720 Balance 720 / 720 Intake: Oral 720 / 720 Other: # Voids 2 3 Date of Last Bowel Movement 03/31/18 03/31/18 # Bowel Movements 0 <Tressa Goldsmith D 04/04/18 10:34> - Constitutional no acute distress <Tressa Goldsmith 04/04/18 10:34> - Routine HEENT Exam Head: Present: normocephalic, tenderness of temporal artery. Absent: scalp tenderness <Tressa Goldsmith 04/04/18 10:34> Eye: Present: EOMI (Patient able to tolerate H eye exam with minimal pain, improved from yesterday), PERRL <Tressa Goldsmith D 04/04/18 10:34> - Detailed Eye Exam Pupils: Bilateral regular, round, Bilateral reactive <Tressa Goldsmith 10:34> Visual acuity: stable visual acuity on Right eye <Tressa Goldsmith 04/04/18 10:34> Comments: Patient reports tenderness to palpation along frontal sinus, supraorbital, temples and maxilla, BL but slightly more pronounced on Right side. <Tressa Goldsmith 04/04/18 10:34> - Routine Neck Exam Present: supple, full ROM. Absent: JVD <Tressa Goldsmith 04/04/18 10:34> - Routine Respiratory Exam Present: CTA bilaterally. Absent: accessory muscle use <Tressa Goldsmith 09/10 10:34> - Routine Cardiovascular Exam Present: RRR, S1, S2. Absent: murmur, gallop, rubs <Tressa Goldsmith 10:34> - Routine Abdominal Exam Present: soft, normoactive bowel sounds. Absent: tenderness <AgusTressa 04/04/18 10:34> - Routine Extremities Exam Present: full ROM, pulses intact. Absent: cyanosis, clubbing, edema <Agus Tressa Hung 04/04/18 10:34> - Routine Skin Exam Present: intact <AgusTressa Hung 04/04/18 10:34> - Routine Neurological Exam Present: alert, oriented X3, CN II-XII intact. Absent: pronator drift, abnormal gait <MariahTressa D - 04/04/18 10:34> Assessment and Plan - Assessment (1) Giant cell arteritis Code(s): M31.6 - Other giant cell arteritis Status: Acute (2) Hypertension Code(s): I10 - Essential (primary) hypertension Status: Acute (3) Diabetes Code(s): E11.9 - Type 2 diabetes mellitus without complications Status: Chronic (4) High cholesterol Code(s): E78.00 - Pure hypercholesterolemia, unspecified Status: Acute (5) Nutrition, metabolism, and development symptoms Code(s): R63.8 - Other symptoms and signs concerning food and fluid intake Status: Acute <Liz Fam Torri - 04/04/18 15:59> (1) Giant cell arteritis Code(s): M31.6 - Other giant cell arteritis Status: Acute Plan: Patient presented with 1 day history of transient right eye vision loss accompanied by left temporal tenderness and jaw pain. 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 Suspicion for giant cell arteritis affecting right eye vision. Patient currently with return of right eye vision. Headache and temporal temples BL improved this am. Patient completed 3 day course of IV steroids. Vital signs within normal limits, continue to monitor Pain management: Percocet per pain scale Ophthalmology consulted, appreciate recommendations. Patient to be treated as GCA due to symptoms - s/p 3 days of Methylprednisone 1g IV. 80mg po Prednisone daily started today. Patient to follow-up with her preventive maintenance coordinator and acid tank cleaner to adjust titration steroid after discharge. Yesterday due to patient's worsening headache and transient c/o of "white spot" on Right visual field plan was to transfer pt [place] [facility] [place] where she has received care for this condition in the past. This was discussed with Dr. Perry and her acid tank cleaner Dr. Gomez who agreed with the transfer. Case Management was consulted to assist with the transfer. All patient information was submitted to [facility] in [place] , currently pending formal acceptance and bed placement. Updated Discharge plan: Since patient's pain is well controlled today and right sided vision is stable. Plan to transition patient to p.o. Percocet medication and assess pain tolerance. If pain is tolerated well with p.o. pain medication and patient continues to be stable plan will be to discharge her today with follow-up appointment to her preventive maintenance coordinator this afternoon. Plan discussed with patient who agreed and showed understanding. Follow-up appointment made with Dr. Francois of [facility] [place] [facility] [place] for 2:40 p.m. today, 04/04/2018. Medical records to be faxed to Dr. Francois' office at: [phone] (2) Hypertension Code(s): I10 - Essential (primary) hypertension Status: Acute Plan: Continue with home medication (3) Diabetes Code(s): E11.9 - Type 2 diabetes mellitus without complications Status: Chronic Plan: Patient with history of diabetes. Accu-Cheks Sliding scale insulin per protocol Hypoglycemia protocol (4) High cholesterol Code(s): E78.00 - Pure hypercholesterolemia, unspecified Status: Acute Plan: Continue with home medication (5) Nutrition, metabolism, and development symptoms Code(s): R63.8 - Other symptoms and signs concerning food and fluid intake Status: Acute Plan: Fluids: not indicated at this time Electrolytes: Replete as needed Nutrition: Diabetic diet DVT prophylaxis Lovenox 40mg SQ daily <Tressa Goldsmith D - 04/04/18 10:03> - Attending Attestation The exam, history, and the medical decision-making described in the above note were completed with the assistance of the resident physician. I reviewed and agree with the findings presented. I attest that I had a [id number] encounter with the patient on the same day, and personally performed and documented my assessment and findings in the medical record. Discussed with patient what she wished to do since she was feeling better. She stated that she would not try to wean herself down on the prednisone so quickly. We have talked multiple times during this admission balance adding a biologic agent temporal arteritis from taking her right eye. In fact she had been offered a biologic agent by her doctor up in [place] and had refused. Her pain and symptoms that were similar to her prior temporal arteritis symptoms were way better today. She was not needing any IV medicine and her vision was stable, according to her, since the night before. I advised her if she developed any recurrence of her problems that she should have her drive her to [facility] in [place] he has GI doctors out there were very familiar with her and she be able to see a acid tank cleaner as an inpatient if needed. 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 <Liz Fam - Last Filed: 04/04/18 15:59> (3) Diabetes Qualifiers: Diabetes mellitus type: drug or chemical induced Diabetes mellitus [facility] insulin use: without [facility] use Diabetes mellitus complication status: without complication Qualified Code(s): 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 <Tressa Goldsmith - Last Filed: 04/04/18 10:03> (3) Diabetes Qualifiers: Diabetes mellitus type: drug or chemical induced Diabetes mellitus [facility] insulin use: without [facility] use Diabetes mellitus complication status: without complication Qualified Code(s): 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
[2018-04-04] MEDS: Enoxaparin Inj 40 MG/0.4 ML Syringe SQ SCH (12:23)
--- NOTE | 2018-04-22 18:15 | P.DS ---
Date of admission: 03/31/18 19:50 Primary care physician: UNKNOWN Brief History from admission: Ms Miles is a 72-year-old female with past medical history of diabetes, high cholesterol and left giant cell arteritis (resulting in Left eye vision loss) presenting to the ED with complaints of transient right eye vision loss. Patient reports that she woke up around 4 AM with a bad headache, pain was of throbbing sensation on left episcopalian. She took Fioricet and Tylenol for her headache. Later on in the morning that she noticed she could not see from the right eye. Right vision returned within 15 minutes but it was still blurry. Her headache was accompanied by left-sided facial and jaw pain. Patient also reports she felt nauseous and had an upset stomach. Endorses diarrhea. 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 At that time bilateral biopsies of temporal arteries were done and results were negative. However, MRA results were consistent with giant cell arteritis. Patient reports that current episode of right eye vision loss and symptoms of headache, temporal pain are similar to her prior episode of left-sided giant cell arteritis. Denies any numbness or tingling of extremities, weakness, chest pain, shortness of breath, gait issues, fever or chills. Patient went to [facility] where she received lab work and was given [address]. [address] head and brain without contrast was done with showed mild atrophic changes, no masses or hemorrhages or evidence of acute infarction. Chest x-ray was normal. CBC, ESR and CMP were within normal limits, except slight decrease in na to 127. Of note patient follows with Dr. Rosen from [facility] and Dr. Gomez, ophthalmology and rheumatology respectively. She has been tapering down her prednisone medication. Initial dose started at 80 mg and she is currently at 4 mg (for the past 3 wks). She states that she has exacerbation of her headaches whenever she tries to exercise. She has tried to wean down to 3 mg of prednisone but experiences flares every time she has tried to do so. She reports that the tapering of the prednisone has been done based on recommendations from her police or patrol park officer and juvenile corrections officer. Fortunately, her vision has been stable here in the hospital. She is still light sensitive but can see to read an eye chart. She has no complaints today and her headaches are improving with the steroids. DS: Diagnosis - Discharge Diagnosis (1) Giant cell arteritis Status: Acute (2) Hypertension Status: Acute (3) Diabetes Status: Chronic (4) High cholesterol Status: Acute (5) Nutrition, metabolism, and development symptoms Status: Acute DS: Medications - Discharge Medications Prescriptions: oxycodone-acetaminophen [Percocet] 1 tab PO Q6H PRN #12 tab PRN Reason: Headache pantoprazole 40 mg PO DAILY 30 Days #30 tab prednisone See Label Instructions .ROUTE .COMPLEX 146 Days tab DS: Summary Hospital Course: Patient is a 72-year-old female with past medical history of diabetes, high cholesterol and left giant cell arteritis (resulting in Left eye vision loss) who presented to the ED with complaints of transient right eye vision loss. Patient was treated with IV steroids and completed a course of 1 g for 3 days. On admission patient was hemodynamically stable. Headache was well controlled and right-sided vision was stable. No neurological deficits were noted throughout hospital course. An appointment was made for the patient to see her police or patrol park officer upon discharge from the hospital. Patient was also advised to follow-up with her police or patrol park officer/neuro doctor in [place] for further evaluation. Patient was discharged with instructions to continue p.o. dose of prednisone to be adjusted by her police or patrol park officer and/or juvenile corrections officer. - Time Spent with Patient Total time spent providing and/or coordinating discharge services: - Quality: VTE Deep Vein Thrombosis/Pulmonary Embolism Present on Admission: No Exam - Constitutional no acute distress - Routine HEENT Exam Head: Present: normocephalic, tenderness of temporal artery. Absent: scalp tenderness Eye: Present: EOMI (Patient able to tolerate H eye exam with minimal pain, improved from yesterday), PERRL Comments: Pupils:Bilateral regular, round, Bilateral reactive - Detailed Eye Exam Visual acuity: stable visual acuity on Right eye - Routine Neck Exam Present: supple, full ROM. Absent: JVD - Routine Respiratory Exam Present: CTA bilaterally. Absent: accessory muscle use - Routine Cardiovascular Exam Present: RRR, S1, S2. Absent: murmur, gallop, rubs - Routine Abdominal Exam Present: soft, normoactive bowel sounds. Absent: tenderness - Routine Extremities Exam Present: full ROM, pulses intact. Absent: cyanosis, clubbing, edema - Routine Neurological Exam Present: alert, oriented X3, CN II-XII intact. Absent: pronator drift, abnormal gait Results Procedures completed during hospitalization: None - Impressions ITS Impressions Carotid Doppler Study 03/31/18 17:55 CONCLUSION: 1. Right Internal Carotid Artery: No significant stenosis or atherosclerotic plaque is visualized. 2. Left Internal Carotid Artery: No significant stenosis or atherosclerotic plaque is visualized. Discharge Plan - Discharge Disposition Patient Disposition: Discharge Home - Discharge Condition Condition: Stable - Discharge Order Discharge Orders: Discharge Order (Routine); Ordered 04/04/18 Ordered By: Tressa Goldsmith - Discharge Details Anticipated Discharge Date: 04/03/18 Discharge Comment: Patient to be discharge today if continues to be stable with f/u appt scheduled with her opthomologist Dr. Huerta today (04/04) at 2:40pm. Patient can also follow with her - Physicians Team Primary Care Provider: UNKNOWN, Attending Provider: Liz Fam Other Providers: Sirena Perry MD
== END 2018-04-04 13:13 | disposition home or self-care (01) ==
LOC: NEPE 16:44 → NEDA 19:50 → N06 20:52
PROVIDERS: ADMIT Family Medicine; ATTEND Family Medicine